=== PATIENT | male | born 1955 | race Caucasian/White ===

== ENCOUNTER 2024-08-23 13:45 | Outpatient (CLI) | payer MEDICARE, SELFPAY ==
--- NOTE | ~2024-08-23 | MR_ITS ---
EXAMINATION: MR pelvis wo/w con DATE: 08/23/2024 16:11 INDICATION: TECHNIQUE: Magnetic resonance imaging (MRI) of the pelvis was performed without and with 15 mL Multih ance intravenous contrast. Fullfield sequences of the pelvis included axial and coronal T2-weighted S S FSE, axial, sagittal and coronal 2D FIESTA, axial 2D FIESTA FS, axial SSFSE-IR BRENDA, axial dual-echo T1-weighted FSPGR, axial and coronal T1 weighted LAVA, 3D axial T2 Cube, axial diffusion-weighted SE with apparent diffusion coefficient (ADC) maps. Postcontrast sequences included a time course axial T1-weighted LAVA and sagittal and coronal T1-weighted LAVA. COMPARISON: None. FINDINGS: Postoperative change of prior prostatectomy. There are multiple foci of susceptibility artifact but n o abnormal enhancing soft tissue mass at the prostatectomy bed to suggest residual or locally recurre nt disease. Bladder is otherwise unremarkable. 7.5 cm exophytic cyst arising from the lower pole the right kidney. There is additional 1.5 cm cyst at the lower pole the left kidney. Visualized portions of bowels are unremarkable including a normal appendix. No free fluid in the pelvis. No pathologicall y enlarged pelvic or inguinal lymphadenopathy. Mild lumbar levocurvature with moderate to severe spon dylosis. Normal bone marrow signal with no pathologic marrow replacing process. IMPRESSION: 1. Status post prostatectomy reportedly for prostate cancer. No evident residual/locally recurrent or metastatic disease in the pelvis. Given the reported increasing PSA level would consider further alina luation with PSMA PET/CT. Reviewed, dictated and finalized at location A. IMPRESSION: 1. Status post prostatectomy reportedly for prostate cancer. No evident residua l/locally recurrent or metastatic disease in the pelvis. Given the reported inc reasing PSA level would consider further evaluation with PSMA PET/CT.
--- OUTSIDE RECORDS SUMMARY | 2024-08-23 13:51 | XMS_ITS | Encounter Summary ---
Author Organization [facility] Address [address] [place] [id number] Care Team Providers Care Arranger Assembler Name Role Phone Raj Gould DO Primary Care Provider [phone] Encounter Details Date Type Department Care Team (Late st Contact Info) Description 08/26/2019 Prep for Procedure [facility] [place], [place] [id number] Kayden Templeton MD [facility] [address] [place] [id number] Social History Tobacco Use Types Packs/Day Years Used Date Smoking Tobacco: Never Smokeless Tobacco: Never Alcohol Use Standard Drinks/Week Comments No 0 (1 standard drink = 0.6 oz pur e alcohol) AUDIT-C Answer Date Recorded Frequency of Alcohol Consumption Never 06/18/2018 Average Number of Drinks Not on file 019 Frequency of Binge Drinking Not on file 08/2018 Sex and Gender Information Value Date Recorded Sex Assigned at Not on file Legal Sex Male 6:21 PM CDT Gender Identity Not on file Sexual Orientation Not on file COVID-19 Exposure Response Date Recorded In the last month, have you been in contact with someone who was confirmed or suspected to have Coronavirus / COVID-19? No / Unsure 08/27/2019 5:44 AM CDT documented as of this encounter Plan of Treatment Not on file documented as of this encounter Results * RESPIRATORY PCR PANEL 2 ([facility]ONSCOPY PATIENTS ONLY) (08/26/2019 9:54 AM CDT) Pathologist [facility] ADENOVIRUS PCR (RESP) NOT DETECTED NOT DETECTED 08/26/2019 12:24 PM CDT [facility] CORONAVIRUS 229E PCR (RESP) NOT DETECTED NOT DETECTED 08/26/2019 12:24 PM CDT [facility] CORONAVIRUS HKU1 PCR (RESP) NOT DETECTED NOT DETECTED 08/26/2019 12:24 PM CDT [facility] CORONAVIRUS NL63 PCR (RESP) NOT DETECTED NOT DETECTED 08/26/2019 12:24 PM CDT [facility] CORONAVIRUS OC43 PCR (RESP) NOT DETECTED NOT DETECTED 08/26/2019 12:24 PM CDT [facility] METAPNEUMOVIRUS PCR (RESP) NOT DETECTED NOT DETECTED 08/26/2019 12:24 PM CDT [facility] RHINOVIRUS/ENTEROV IRUS PCR (RESP) NOT DETECTED NOT DETECTED 08/26/2019 12:24 PM CDT [facility] INFLUENZA A PCR (RESP) NOT DETECTED NOT DETECTED 08/26/2019 12:24 PM CDT [facility] INFLUENZA B PCR (RESP) NOT DETECTED NOT DETECTED 08/26/2019 12:24 PM CDT [facility] PARAINFLUENZA 1 PCR (RESP) NOT DETECTED NOT DETECTED 08/26/2019 12:24 PM CDT [facility] PARAINFLUENZA 2 PCR (RESP) NOT DETECTED NOT DETECTED 08/26/2019 12:24 PM CDT [facility] PARAINFLUENZA 3 PCR (RESP) NOT DETECTED NOT DETECTED 08/26/2019 12:24 PM CDT [facility] PARAINFLUENZA 4 PCR (RESP) NOT DETECTED NOT DETECTED 08/26/2019 12:24 PM CDT [facility] RSV PCR (RESP) NOT DETECTED NOT DETECTED 08/26/2019 12:24 PM CDT [facility] B PARAPERTUSIS PCR (RESP) NOT DETECTED NOT DETECTED 08/26/2019 12:24 PM CDT [facility] BORDETELLA PERTUSSIS PCR (RESP) NOT DETECTED NOT DETECTED 08/26/2019 12:24 PM CDT [facility] CHLAMYDOPHILA PNEUMONIAE PCR (RESP) NOT DETECTED NOT DETECTED 08/26/2019 12:24 PM CDT [facility] MYCOPLASMA PNEUMONIAE PCR (RESP) NOT DETECTED NOT DETECTED 08/26/2019 12:24 PM CDT [facility] CORONAVIRUS SARS COV 2 PCR (RESP) NOT DETECTED NOT DETECTED 08/26/2019 12:24 PM CDT [facility] Comment: THE SARS-CoV-2 TEST HAS BEEN AUTHORIZED BY THE FDA UNDER AN EUA FOR USE BY AUTHORIZED LABORATORIES. NASOPHARYNGEAL STRUCTURE / Unknown 08/26/2019 9:54 AM CDT us Kayden Templeton MD MICROBIOLOGY - [facility] Final Result [facility] [address] [place] [address], [place] [phone] documented in this encounter Visit Diagnoses Diagnosis Epigastric pain- Primary Abdominal pain, epigastric History of colonic polyps Personal history of colonic polyps documented in this encounter Additional Health Concerns Infection Onset Date Last Indicated Resolved Time COVID-19 Rule Out 08/26/2019 08/26/2019 08/26/2019 12:24 PM CDT documented as of this encounter Care Teams Arranger Assembler Relationship Specialty Start Date End Date Raj Gould DO PCP - General FAMILY PRACTICE 03/28/18 documented as of this encounter
--- OUTSIDE RECORDS SUMMARY | 2024-08-23 13:51 | XMS_ITS ---
Author Organization [facility] Address [address] [place], [place] [id number] Care Team Providers Care Tab Cutting Machine Operator Name Role Phone SHANNAN BESSIE Unavailable [phone] Raj Gould Unavailable Unavailable Allergies No Known Allergies REASON FOR VISIT *Wound check Medications Medication SIG (Take, Route, Frequency, Duration) Notes Start Date End Date Status Levothyroxine Sodium 25 MCG 1 tablet in the morning on an empty stomach Orally Once a day Active amLODIPine Benzoate 1 MG/ML 5 mL Orally Once a day Active Pantoprazole Sodium 20 MG 1 tablet 1/2 t o 1 hour before morning meal Orally Once a day Active Atorvastatin Calcium 10 MG 1 tablet Oral ly Once a day Active Losartan Potassium 25 MG 1 tablet Orally Once a day Active Vital Signs Height 71 in 07/23/2024 Weight 270 lbs 07/23/2024 BMI 37.65 kg/m2 07/23/2024 Height-cm 180.34 cm 07/23/2024 Weight-kg 122.47 kg 07/23/2024 Encounters Encounter Location Date Provider Diagnosis [facility] [address] [id number] 07/23/2024 BESSIE BURROUGHS 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.521 ; Other acute osteomyelitis of left foot M86.172 and Left foot pain M79.672 Assessments Encounter Date Diagnosis (ICD Code) Assessment Notes Treatment Notes Treatment Clinical Notes Section Notes 07/23/2024 Non-pressure chronic ulcer of other part of left foot limited to breakdown of skin (ICD-10 - L97.521) 07/23/2024 Other acute osteomyelitis of left foot (ICD-10 - M86.172) 07/23/2024 Left foot pain (ICD-10 - M79.672) 07/23/2024 Other MRI of left foot ordered The ulcer was debrided down to bleeding tissue. A dry sterile dressing was applied. The patient was given instruction on home dressing and told to use antibiotic ointment on the wound. The patient was instructed to minimize pressure on the wound and to call the office immediately if the wound should start to worsen. RTC 2 weeks for f/u with X-rays. Plan Of Treatment Treatment Notes Assessment Notes Other MRI of left foot ordered The ulcer was debrided down to bleeding tissue. A dry sterile dressing was applied. The patient was given instruction on home dressing and told to use antibiotic ointment on the wound. The patient was instructed to minimize pressure on the wound and to call the office immediately if the wound should start to worsen. RTC 2 weeks for f/u with X-rays. Next Appt Details Follow Up: 2 Weeks, Reason: with - wound check. Provider Name:BESSIE BARKER, 09/08/2024 07:40:00 AM, [address], [facility] [address], [place], [id number], Progress Notes * SIL AREVALO ADOB: [birth year] (68 yo M)Acc No.[id number]:07/23/2024 Patient: SIL BLAS Provider: Joel Burroughs DPM :1955 A ge:68 Y S ex:Male Date:07/23/2024 [id number] Subjective: * Chief Complaints: * 1 . *Wound check. * HPI: H PI: Follow Up Visit P atient presents for follow-up visit for left foot second toe sore. , Patient states their problem is getting worse. Patient states prolonged walking increases the pain and discomfort MA: ND. * Medical History: C ancer, High blood pressure. * Surgical History: p rostectomy , Hernia . * Family History: F ather: Cancer. B rother: Cancer. * Medications: T aking Losartan Potassium 25 MG Tablet 1 tablet Orally Once a day , Taking Atorvastatin Calcium 10 MG Tablet 1 tablet Orally Once a day , Taking amLODIPine Benzoate 1 MG/ML Suspension 5 mL Orally Once a day , Taking Pantoprazole Sodium 20 MG Tablet Delayed Release 1 tablet 1/2 to 1 hour before morning meal Orally Once a day , Taking Levothyroxine Sodium 25 MCG Tablet 1 tablet in the morning on an empty stomach Orally Once a day , Medication List reviewed and reconciled with the patient * Allergies: N .K.D.A. Objective: * Vitals: S hoe Size: 10w, Wt:270lbs, Wt-k.47 kg, Ht: 71 in, Ht-cm: 180.34 cm, BMI:37.65Index, Body Surface Area: 2.47. * Examination: C onstitutional: Constitutional T he patient is awake, alert, well developed, well groomed and well nourished. . D ermatologic: Nail pathology: N ails 1-5 bilateral are normal in appearance and thickness. No discoloration. . Ulcer: T here is an ulceration present on medial left 2nd toe. The ulcer has no erythema. 4x5 mm N o drainage. No exposed bone.. Hyperkeratotic Skin Lesion T here is no evidence of hyperkeratosis . M usculoskeletal: Muscle Strength M uscle strength is 5/5 in regards to dorsiflexion, plantarflexion, inversion, and eversion in bilateral lower extremities. . Foot Structure T he foot structure is noted to be normal bilaterally . Pain on palpation T here is no pain on palpation . 1st MPJ T here is lateral deviation of bilateral hallux. .? Gait T here is normal gait noted . N eurologic: Muscle power: 5 /5 bilaterally . Gross sensation G ross sensation is intact to light touch. . V ascular: Dorsalis pedis pulse: 2 /4 bilateral . Posterior tibial pulse: 2 /4 bilaterally . Capillary refill: l ess than 3 seconds bilaterally . Temperature gradient: w ithin normal limits . Edema: l eft 2nd toe. Assessment: * Assessment: 1. 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 O ther acute osteomyelitis of left foot - M86.172 ?3. L eft foot pain - M79.672 Plan: * Treatment: * Follow Up: 2 Weeks (Reason: with AH - wound check.) * Billing Information: * Visit Code: 55658 Office Visit, Est Pt., Level 3. * Procedure Codes: * Electronic signature of BESSIE BURROUGHS DPM on 08/23/2024 at 01:51 PM CDT Sign off status: Pending * Provider: Joel Burroughs DPM Date: 07/23/2024 Generated for Cass montes/Tree/Tiara on: 0 08/23/2024 01:51 PM CDT History and Physical Notes * HPI (History of Present Illness) Category Sub-Category Detail Notes Category Not es HPI Follow Up Visit Patient presents for follow-up visit for left foot second toe sore. , Patient states their problem is getting worse. Patient states prolonged walking increases the pain and discomfort MA: ND Examination Category Sub-Category Detail Notes Category Not es Constitutional Constitutional The patient is a wake, alert, well developed, well groomed and well nourished. Dermatologic Nail pathology: Nails 1-5 bilate ral are normal in appearance and thickness. No discoloration. Ulcer: There is an ulcerati on present on medial left 2nd toe. The ulcer has no erythema. 4x5 mm No drainage. No exposed bone. Hyperkeratotic Skin Lesion There is no e vidence of hyperkeratosis Musculoskeletal Muscle Strength Muscle strength is 5/5 in regards to dorsiflexion, plantarflexion, inversion, and eversion in bilateral lower extremities. Pain on palpation There is no pain on palpation 1st MPJ There is lateral dev iation of bilateral hallux. Foot Structure The foot structure i s noted to be normal bilaterally Gait There is normal gait noted Neurologic Muscle power: 5/5 bilaterally Gross sensation Gross sensation is i ntact to light touch. Vascular Dorsalis pedis pulse: 2/4 bilateral Posterior tibial pulse: 2/4 bilaterally Capillary refill: less than 3 seconds bilaterally Temperature gradient: within normal limi ts Edema: left 2nd toe
--- OUTSIDE RECORDS SUMMARY | 2024-08-23 13:51 | XMS_ITS | Data Portability ---
Author Organization [facility] Madeline H C Address [address] [place] [address] Assessment No assessment recorded. Plan of Treatment Reminders Order Date Submit Date Provider Last Modified By Organization Details Last Modified Time Details Appointments ANY 15 2024 07:00A Griselda Cotter, DO Not available Not available Not available Lab HbA1c (hemoglob in A1c), blood 2024 025 [employer] [facility], [address], [address], [place], [address], 07/10/2024 05:48:09 CBC w/ auto diff 2024 025 [employer] [facility], [address], [address], [place], [address], 07/10/2024 05:48:08 BMP, serum or plasma 2024 025 [employer] [facility], [address], [address], [place], [address], 07/10/2024 05:48:06 hepatic function panel, serum 2024 025 [employer] [facility], [address], [address], [place], [address], 07/10/2024 05:48:07 iron, serum 2024 025 [employer], [address], [address], [place], [address], 07/10/2024 05:48:05 CBC w/ auto diff 2023 024 [facility], [address], [address], [place], [address], 01/30/2024 04:33:08 iron + TIBC + ferritin, serum 2023 024 [facility], [address], [address], [place], [address], 01/30/2024 04:33:06 BMP, serum or plasma 2023 024 [facility] [facility], [address], [address], [place], [address], 10/04/2023 09:06:23 CBC 2023 024 [employer] [facility], [address], [address], [place], [address], 10/08/2023 13:27:06 lipid panel, serum 2023 024 [facility], [address], [address], [place], [address], 10/04/2023 09:06:22 hepatic function panel, serum 2023 024 [facility], [address], [address], [place], [address], 10/04/2023 09:06:24 vitamin D, 25-hydrox y, total, serum 2023 024 [facility], [address], [address], [place], [address], 10/04/2023 09:06:27 TSH, serum or plasma 2023 024 [employer] [facility], [address], [address], [place], [address], 10/04/2023 09:06:26 Referral None recorded. Procedures None recorded. Surgeries None recorded. Imaging MRI, lumbar spine, w/o contrast 2024 025 [facility]), [address], [address], [place], [address], 03/19/2024 12:45:35 Medication Orders Zepbound 2.5 mg/0.5 mL subcutane ous pen injector 2024 [facility], [address] [place] [address], [id number], 06/27/2024 18:33:03 triamcino lone acetonide 40 mg/mL suspensio n for injection 2024 025 [facility], [address] [place] [address], [id number], 06/24/2024 08:20:08 Patient TargetsNo targets recorded. Patient Instructions Encounter Date Encounter Id Patient Instructions Last Modified By Organization Details Last Modified Time 06/22/2023 [id number] A healthy lifestyle: care instructions [email or web address] Not available 06/22/2023 09:39:19 03/10/2024 [id number] A healthy lifestyle: care instructions [email or web address] Not available 03/10/2024 09:04:10 06/24/2024 [id number] A healthy lifestyle: care instructions [email or web address] Not available 06/24/2024 15:13:54 Reason for Referral None Reported. Results Created Date Observation Date Name Description Value Unit Range Abnormal Flag Note LastModifiedBy Organization Detail LastModifiedTime 09/18/1901/01/2024 HOUSE ACCOU NT TRACK ING tracking house account We were unabl e to ident kaci an accou nt numbe r for the order submi tted. If you do not have a [facility] accou nt numbe r or if your accou nt infor matio n needs to be updat ed pleas e call [phone] for juni tance . To preve nt delay s in testi ng and proce ssing of your order s pleas e provi de the follo wing infor martir n for this order and with every addit ional order submi tted: [facility] accou nt numbe r and accou nt name Clien t addre ss Clien t phone and fax numbe r NPI numbe r of order ing physi ciro along with the physi ciro name. Not Available [address], [address], 01/01/2024 13:53:11 09/18/1901/01/2024 FECAL GLOBI N BY IMMUN OCHEM ISTRY fecal globin by immunochemis try FECAL GLOBI N BY IMMUN OCHEM ISTRY Micro Numbe r: [id number] Test Statu s: Final Speci men Sourc e: Insur e (tm) fobt test card Speci men Quali ty: Inade quate Fecal Globi n: Test not perfo rmed. The speci men excee ds stabi lity for the test reque sted. Not Available [address], [address], 01/01/2024 13:53:13 10/02/19 24 10/04/2023 LIPID PANEL (REFL ) cholesterol, total 103 mg/dL <200 normal Not Available [employer] [address], [address], 10/04/2023 09:06:22 10/02/19 24 10/04/2023 LIPID PANEL (REFL ) HDL cholesterol 42 mg/dL > or = 40 normal Not Available [address], [address], 10/04/2023 09:06:22 10/02/19 24 10/04/2023 LIPID PANEL (REFL ) triglyceride s 88 mg/dL <150 normal Not Available [address] [place], [address], 10/04/2023 09:06:22 10/02/19 24 10/04/2023 LIPID PANEL (REFL ) LDL-choleste rol 44 mg/dL _(kim c) normal Refer ence range : <100 Marycruz able range <100 mg/dL for prima ry preve ntion ; <70 mg/dL for patie nts with CHD or diabe tic patie nts with > or = 2 CHD risk facto rs. LDL-C is now calcu lated using the Koki n-Hop kins calcu latmallory n, which is a valid ated novel metho d provi ding daljit r accur acy than the Fried karthik equat ion in the estim ation of LDL-C . Koki otero SS et al. SABINE. 2013; 310(1 9): 2061- 2068 (http ://ed ucati on.A-STAR. NASOFORM/f aq/FA Q164) Not Available [employer] [address], [address], 10/04/2023 09:06:22 10/02/19 24 10/04/2023 LIPID PANEL (REFL ) chol/HDLC ratio 2.5 (calc ) <5.0 normal Not Available [address], [address], 10/04/2023 09:06:22 10/02/19 24 10/04/2023 LIPID PANEL (REFL ) non HDL cholesterol 61 mg/dL _(kim c) <130 normal For patie nts with diabe catalina plus 1 major ASCVD risk facto r, treat ing to a non-H DL-C goal of <100 mg/dL (LDL- C of <70 mg/dL ) is laure freemano n. Not Available [address] [address] [place], [address], 10/04/2023 09:06:22 10/02/19 24 10/04/2023 BASIC METAB OLIC PANEL glucose 107 mg/dL 65-99 high Fasti ng refer ence inter cristobal For someo ne witho ut known diabe catalina, a gluco se value betwe en 100 and 125 mg/dL is consi stent with predi abete s and shoul d be confi rmed with a follo w-up test. Not Available [address] [address] [place], [address], 10/04/2023 09:06:23 10/02/19 24 10/04/2023 BASIC METAB OLIC PANEL urea nitrogen (BUN) 16 mg/dL 7-25 normal Not Available [facility] [address] [address] [place], [address], 10/04/2023 09:06:23 10/02/19 24 10/04/2023 BASIC METAB OLIC PANEL creatinine 1.02 mg/dL 0.70-1 .35 normal Not Available [employer] [address] [address] [place], [address], 10/04/2023 09:06:23 10/02/19 24 10/04/2023 BASIC METAB OLIC PANEL eGFR 80 mL/mi n/1.7 3m2 > or = 60 normal Not Available [address] [address] [place], [address], 10/04/2023 09:06:23 10/02/19 24 10/04/2023 BASIC METAB OLIC PANEL BUN/creatini ne ratio SEE NOTE: (calc ) 6-22 Not Repor mg: BUN and Creat inine are withi n refer ence range . Not Available [facility] [address] [address] [place], [address], 10/04/2023 09:06:23 10/02/19 24 10/04/2023 BASIC METAB OLIC PANEL sodium 140 mmol/ L 135-14 6 normal Not Available [facility] [address] [address] [place], [address], 10/04/2023 09:06:23 10/02/19 24 10/04/2023 BASIC METAB OLIC PANEL potassium 4.5 mmol/ L 3.5-5. 3 normal Not Available [address], [address], 10/04/2023 09:06:23 10/02/19 24 10/04/2023 BASIC METAB OLIC PANEL chloride 108 mmol/ L 98-110 normal Not Available [address], [address], 10/04/2023 09:06:23 10/02/19 24 10/04/2023 BASIC METAB OLIC PANEL carbon dioxide 26 mmol/ L 20-32 normal Not Available [address], [address], 10/04/2023 09:06:23 10/02/19 24 10/04/2023 BASIC METAB OLIC PANEL calcium 8.5 mg/dL 8.6-10 .3 low Not Available [address], [address], 10/04/2023 09:06:23 10/02/19 24 10/04/2023 HEPAT IC FUNCT ION PANEL protein, total 6.0 g/dL 6.1-8. 1 low Not Available [address], [address], 10/04/2023 09:06:24 10/02/19 24 10/04/2023 HEPAT IC FUNCT ION PANEL albumin 3.9 g/dL 3.6-5. 1 normal Not Available [address], [address], 10/04/2023 09:06:24 10/02/19 24 10/04/2023 HEPAT IC FUNCT ION PANEL globulin 2.1 g/dL_ (calc ) 1.9-3. 7 normal Not Available [address], [address], 10/04/2023 09:06:24 10/02/19 24 10/04/2023 HEPAT IC FUNCT ION PANEL albumin/glob ulin ratio 1.9 (calc ) 1.0-2. 5 normal Not Available [address], [address], 10/04/2023 09:06:24 10/02/19 24 10/04/2023 HEPAT IC FUNCT ION PANEL bilirubin, total 0.5 mg/dL 0.2-1. 2 normal Not Available [address], [address], 10/04/2023 09:06:24 10/02/19 24 10/04/2023 HEPAT IC FUNCT ION PANEL bilirubin, direct 0.1 mg/dL < or = 0.2 normal Not Available [address], [address], 10/04/2023 09:06:24 10/02/19 24 10/04/2023 HEPAT IC FUNCT ION PANEL bilirubin, indirect 0.4 mg/dL _(kim c) 0.2-1. 2 normal Not Available [address], [address], 10/04/2023 09:06:24 10/02/19 24 10/04/2023 HEPAT IC FUNCT ION PANEL alkaline phosphatase 107 U/L 35-144 normal Not Available [address] [address] [place], [address], 10/04/2023 09:06:24 10/02/19 24 10/04/2023 HEPAT IC FUNCT ION PANEL AST 14 U/L 10-35 normal Not Available [address], [address], 10/04/2023 09:06:24 10/02/19 24 10/04/2023 HEPAT IC FUNCT ION PANEL ALT 12 U/L 9-46 normal Not Available [address], [place], [address], 10/04/2023 09:06:24 10/02/19 24 10/04/2023 TSH W/REF RIOS TO FT4 TSH w/reflex to FT4 0.87 mIU/L 0.40-4 .50 normal Not Available [facility] [address] [address] [place], [address], 10/04/2023 09:06:26 10/02/19 24 10/04/2023 VITAM IN D,25- OH,TO JOANNA,I A vitamin D,25-oh,tota l,ia 56 NG/mL 30-100 normal Vitam in D Statu s 25-OH Vitam in D: Defic iency : <20 ng/mL Insuf ficie ncy: 20 - 29 ng/mL Optim al: > or = 30 ng/mL For 25-OH Vitam in D testi ng on patie nts on D2-gardner pplem entat ion and patie nts for whom quant itati on of D2 and D3 fract ions is requi red, the [facility] Assur eD(TM ) 25-OH VIT D, (D2,D 3), LC/MS /MS is recom britt d: order code 01750 (quentin ents >2yrs ). See Note 1 Note 1 For addit ional infor jelani tucker refer to http: //[facility] reuben Sheikhia gnost ics.c om/fa q/FAQ 199 (This link is being provi ded for infor martir garay/ collin almeida purpo ses only. ) Not Available [facility] [address] [address] [place], [address], 10/04/2023 09:06:26 10/17/1910/18/2023 IRON, TIBC AND INGRID TIN PANEL iron, total 36 mcg/d L 50-180 low Not Available [facility] [address] [address] [place], [address], 10/18/2023 07:55:58 10/17/19 24 10/18/2023 IRON, TIBC AND INGRID TIN PANEL iron binding capacity 385 mcg/d L_(ca lc) 250-42 5 normal Not Available [address], [address], 10/18/2023 07:55:58 10/17/19 24 10/18/2023 IRON, TIBC AND INGRID TIN PANEL % saturation 9 %_(ca lc) 20-48 low Not Available [address], [address], 10/18/2023 07:55:58 10/17/19 24 10/18/2023 IRON, TIBC AND INGRID TIN PANEL ferritin 5 NG/mL 24-380 low Not Available [address], [address], 10/18/2023 07:55:58 10/17/19 24 10/18/2023 RETIC ULOCY TE COUNT reticulocyte count, automated 1.0 % normal Not Available [address], [address], 10/18/2023 07:55:59 10/17/19 24 10/18/2023 RETIC ULOCY TE COUNT reticulocyte , absolute 35074 cells /uL [address]- [address] normal Not Available [address], [address], 10/18/2023 07:55:59 10/17/19 24 10/18/2023 VITAM IN B12 vitamin B12 838 pg/mL 200-11 00 normal Not Available [address], [address], 10/18/2023 07:55:59 01/29/20 24 01/30/2024 IRON, TIBC AND INGRID TIN PANEL iron, total 199 mcg/d L 50-180 high Not Available [address], [address], 01/30/2024 04:33:06 01/29/20 24 01/30/2024 IRON, TIBC AND INGRID TIN PANEL iron binding capacity 390 mcg/d L_(ca lc) 250-42 5 normal Not Available [address], [address], 01/30/2024 04:33:06 01/29/20 24 01/30/2024 IRON, TIBC AND INGRID TIN PANEL % saturation 51 %_(ca lc) 20-48 high Not Available [address], [address], 01/30/2024 04:33:06 01/29/20 24 01/30/2024 IRON, TIBC AND INGRID TIN PANEL ferritin 9 NG/mL 24-380 low Not Available [address], [address], 01/30/2024 04:33:06 01/29/20 24 01/30/2024 CBC (INCL UDES DIFF/ PLT) white blood cell count 4.9 thous and/u L 3.8-10 .8 normal Not Available [address], [address], 01/30/2024 04:33:08 01/29/20 24 01/30/2024 CBC (INCL UDES DIFF/ PLT) red blood cell count 5.18 za on/uL 4.20-5 .80 normal Not Available [address], [address], 01/30/2024 04:33:08 01/29/20 24 01/30/2024 CBC (INCL UDES DIFF/ PLT) hemoglobin 13.1 g/dL 13.2-1 7.1 low Not Available [address], [address], 01/30/2024 04:33:08 01/29/20 24 01/30/2024 CBC (INCL UDES DIFF/ PLT) hematocrit 42.4 % 38.5-5 0.0 normal Not Available [address], [address], 01/30/2024 04:33:08 01/29/20 24 01/30/2024 CBC (INCL UDES DIFF/ PLT) MCV 81.9 fL 80.0-1 00.0 normal Not Available [address], [address], 01/30/2024 04:33:08 01/29/20 24 01/30/2024 CBC (INCL UDES DIFF/ PLT) MCH 25.3 pg 27.0-3 3.0 low Not Available [employer] [address], [address], 01/30/2024 04:33:08 01/29/20 24 01/30/2024 CBC (INCL UDES DIFF/ PLT) MCHC 30.9 g/dL 32.0-3 6.0 low For adult s, a sligh t decre ase in the calcu lated MCHC value (in the range of 30 to 32 g/dL) is most likel y not clini nathaniel aguilar t; maria luisa er, it shoul d be inter prete d with cauti on in [facility] n with other red cell gabriella eters and the patie nt's clini kim condi tion. Not Available [employer] [address], [address], 01/30/2024 04:33:08 01/29/20 24 01/30/2024 CBC (INCL UDES DIFF/ PLT) RDW 16.4 % 11.0-1 5.0 high Not Available [employer] [address], [address], 01/30/2024 04:33:08 01/29/20 24 01/30/2024 CBC (INCL UDES DIFF/ PLT) platelet count 230 thous and/u L 140-40 0 normal Not Available [facility] [id number] [place], [address], 01/30/2024 04:33:08 01/29/20 24 01/30/2024 CBC (INCL UDES DIFF/ PLT) MPV 10.1 fL 7.5-12 .5 normal Not Available [address], [address], 01/30/2024 04:33:08 01/29/20 24 01/30/2024 CBC (INCL UDES DIFF/ PLT) absolute neutrophils 3126 cells /uL 1500-7 800 normal Not Available [address], [address], 01/30/2024 04:33:08 01/29/20 24 01/30/2024 CBC (INCL UDES DIFF/ PLT) absolute lymphocytes 1068 cells /uL 850-39 00 normal Not Available [address], [address], 01/30/2024 04:33:08 01/29/20 24 01/30/2024 CBC (INCL UDES DIFF/ PLT) absolute monocytes 495 cells /uL 200-95 0 normal Not Available [address], [address], 01/30/2024 04:33:08 01/29/20 24 01/30/2024 CBC (INCL UDES DIFF/ PLT) absolute eosinophils 162 cells /uL 15-500 normal Not Available [address], [address], 01/30/2024 04:33:08 01/29/20 24 01/30/2024 CBC (INCL UDES DIFF/ PLT) absolute basophils 49 cells /uL 0-200 normal Not Available [address], [address], 01/30/2024 04:33:08 01/29/20 24 01/30/2024 CBC (INCL UDES DIFF/ PLT) neutrophils 63.8 % normal Not Available [address], [address], 01/30/2024 04:33:08 01/29/20 24 01/30/2024 CBC (INCL UDES DIFF/ PLT) lymphocytes 21.8 % normal Not Available [address], [address], 01/30/2024 04:33:08 01/29/20 24 01/30/2024 CBC (INCL UDES DIFF/ PLT) monocytes 10.1 % normal Not Available [address], [address], 01/30/2024 04:33:08 01/29/20 24 01/30/2024 CBC (INCL UDES DIFF/ PLT) eosinophils 3.3 % normal Not Available [address], [address], 01/30/2024 04:33:08 01/29/20 24 01/30/2024 CBC (INCL UDES DIFF/ PLT) basophils 1.0 % normal Not Available [address], [address], 01/30/2024 04:33:08 07/10/19 25 07/10/2024 IRON, TOTAL iron, total 100 mcg/d L 50-180 normal Not Available [address], [address], 07/10/2024 05:48:05 07/10/19 25 07/10/2024 BASIC METAB OLIC PANEL glucose 104 mg/dL 65-99 high Fasti ng refer ence inter cristobal For someo ne witho ut known diabe catalina, a gluco se value betwe en 100 and 125 mg/dL is consi stent with predi abete s and shoul d be confi rmed with a follo w-up test. Not Available [address] [place], [address], 07/10/2024 05:48:06 07/10/1907/10/2024 BASIC METAB OLIC PANEL urea nitrogen (BUN) 15 mg/dL 7-25 normal Not Available [address], [address], 07/10/2024 05:48:06 07/10/1907/10/2024 BASIC METAB OLIC PANEL creatinine 1.05 mg/dL 0.70-1 .28 normal Not Available [address], [address], 07/10/2024 05:48:06 07/10/1907/10/2024 BASIC METAB OLIC PANEL eGFR 76 mL/mi n/1.7 3m2 > or = 60 normal Not Available [address], [address], 07/10/2024 05:48:06 07/10/1907/10/2024 BASIC METAB OLIC PANEL BUN/creatini ne ratio SEE NOTE: (calc ) 6-22 Not Repor mg: BUN and Creat inine are withi n refer ence range . Not Available [address], [address], 07/10/2024 05:48:06 07/10/1907/10/2024 BASIC METAB OLIC PANEL sodium 141 mmol/ L 135-14 6 normal Not Available [address], [address], 07/10/2024 05:48:06 07/10/1907/10/2024 BASIC METAB OLIC PANEL potassium 4.3 mmol/ L 3.5-5. 3 normal Not Available [address], [address], 07/10/2024 05:48:06 07/10/1907/10/2024 BASIC METAB OLIC PANEL chloride 106 mmol/ L 98-110 normal Not Available [address], [address], 07/10/2024 05:48:06 07/10/1907/10/2024 BASIC METAB OLIC PANEL carbon dioxide 27 mmol/ L 20-32 normal Not Available [address], [address], 07/10/2024 05:48:06 07/10/1907/10/2024 BASIC METAB OLIC PANEL calcium 8.8 mg/dL 8.6-10 .3 normal Not Available [address], [address], 07/10/2024 05:48:06 07/10/1907/10/2024 HEPAT IC FUNCT ION PANEL protein, total 6.3 g/dL 6.1-8. 1 normal Not Available [address], [address], 07/10/2024 05:48:07 07/10/1907/10/2024 HEPAT IC FUNCT ION PANEL albumin 4.3 g/dL 3.6-5. 1 normal Not Available [address], [address], 07/10/2024 05:48:07 07/10/1907/10/2024 HEPAT IC FUNCT ION PANEL globulin 2.0 g/dL_ (calc ) 1.9-3. 7 normal Not Available [address], [address], 07/10/2024 05:48:07 07/10/1907/10/2024 HEPAT IC FUNCT ION PANEL albumin/glob ulin ratio 2.2 (calc ) 1.0-2. 5 normal Not Available [address], [address], 07/10/2024 05:48:07 07/10/1907/10/2024 HEPAT IC FUNCT ION PANEL bilirubin, total 1.0 mg/dL 0.2-1. 2 normal Not Available [address], [address], 07/10/2024 05:48:07 07/10/1907/10/2024 HEPAT IC FUNCT ION PANEL bilirubin, direct 0.3 mg/dL < or = 0.2 high Not Available [address], [address], 07/10/2024 05:48:07 07/10/1907/10/2024 HEPAT IC FUNCT ION PANEL bilirubin, indirect 0.7 mg/dL _(kim c) 0.2-1. 2 normal Not Available [address], [address], 07/10/2024 05:48:07 07/10/1907/10/2024 HEPAT IC FUNCT ION PANEL alkaline phosphatase 109 U/L 35-144 normal Not Available [facility] [employer] [address], [address], 07/10/2024 05:48:07 07/10/1907/10/2024 HEPAT IC FUNCT ION PANEL AST 19 U/L 10-35 normal Not Available [address], [address], 07/10/2024 05:48:07 07/10/1907/10/2024 HEPAT IC FUNCT ION PANEL ALT 23 U/L 9-46 normal Not Available [address], [address], 07/10/2024 05:48:07 07/10/1907/10/2024 CBC (INCL UDES DIFF/ PLT) white blood cell count 4.5 thous and/u L 3.8-10 .8 normal Not Available [address], [address], 07/10/2024 05:48:08 07/10/1907/10/2024 CBC (INCL UDES DIFF/ PLT) red blood cell count 5.08 za on/uL 4.20-5 .80 normal Not Available [address], [address], 07/10/2024 05:48:08 07/10/1907/10/2024 CBC (INCL UDES DIFF/ PLT) hemoglobin 14.4 g/dL 13.2-1 7.1 normal Not Available [address], [address], 07/10/2024 05:48:08 07/10/1907/10/2024 CBC (INCL UDES DIFF/ PLT) hematocrit 45.0 % 38.5-5 0.0 normal Not Available [address], [address], 07/10/2024 05:48:08 07/10/1907/10/2024 CBC (INCL UDES DIFF/ PLT) MCV 88.6 fL 80.0-1 00.0 normal Not Available [address], [address], 07/10/2024 05:48:08 07/10/1907/10/2024 CBC (INCL UDES DIFF/ PLT) MCH 28.3 pg 27.0-3 3.0 normal Not Available [address], [address], 07/10/2024 05:48:08 07/10/1907/10/2024 CBC (INCL UDES DIFF/ PLT) MCHC 32.0 g/dL 32.0-3 6.0 normal For adult s, a sligh t decre ase in the calcu lated MCHC value (in the range of 30 to 32 g/dL) is most likel y not clini nathaniel signi jeff t; maria luisa er, it shoul d be inter prete d with cauti on in corre latio n with other red cell gabriella eters and the patie nt's clini kim condi tion. Not Available [facility] [address], [address], 07/10/2024 05:48:08 07/10/1907/10/2024 CBC (INCL UDES DIFF/ PLT) RDW 14.9 % 11.0-1 5.0 normal Not Available [facility] [address], [address], 07/10/2024 05:48:08 07/10/1907/10/2024 CBC (INCL UDES DIFF/ PLT) platelet count 204 thous and/u L 140-40 0 normal Not Available [facility] [address], [address], 07/10/2024 05:48:08 07/10/1907/10/2024 CBC (INCL UDES DIFF/ PLT) MPV 10.4 fL 7.5-12 .5 normal Not Available [address], [address], 07/10/2024 05:48:08 07/10/1907/10/2024 CBC (INCL UDES DIFF/ PLT) absolute neutrophils 3056 cells /uL 1500-7 800 normal Not Available [facility] [address], [address], 07/10/2024 05:48:08 07/10/1907/10/2024 CBC (INCL UDES DIFF/ PLT) absolute lymphocytes 846 cells /uL 850-39 00 low Not Available [address], [address], 07/10/2024 05:48:08 07/10/1907/10/2024 CBC (INCL UDES DIFF/ PLT) absolute monocytes 401 cells /uL 200-95 0 normal Not Available [address], [address], 07/10/2024 05:48:08 07/10/1907/10/2024 CBC (INCL UDES DIFF/ PLT) absolute eosinophils 140 cells /uL 15-500 normal Not Available [address], [address], 07/10/2024 05:48:08 07/10/1907/10/2024 CBC (INCL UDES DIFF/ PLT) absolute basophils 59 cells /uL 0-200 normal Not Available [address], [address], 07/10/2024 05:48:08 07/10/1907/10/2024 CBC (INCL UDES DIFF/ PLT) neutrophils 67.9 % normal Not Available [address], [address], 07/10/2024 05:48:08 07/10/1907/10/2024 CBC (INCL UDES DIFF/ PLT) lymphocytes 18.8 % normal Not Available [address], [address], 07/10/2024 05:48:08 07/10/1907/10/2024 CBC (INCL UDES DIFF/ PLT) monocytes 8.9 % normal Not Available [address], [address], 07/10/2024 05:48:08 07/10/1907/10/2024 CBC (INCL UDES DIFF/ PLT) eosinophils 3.1 % normal Not Available [address], [address], 07/10/2024 05:48:08 07/10/1907/10/2024 CBC (INCL UDES DIFF/ PLT) basophils 1.3 % normal Not Available [facility] [address] [place], [address], 07/10/2024 05:48:08 07/10/1907/10/2024 HEMOG LOBIN A1C hemoglobin A1C 6.2 %_of_ total _HGB <5.7 high For someo ne witho ut known diabe catalina, a hemog lobin A1c value betwe en 5.7% and 6.4% is consi stent with predi abete s and shoul d be confi rmed with a follo w-up test. For someo ne with known diabe catalina, a value <7% indic ates that their diabe catalina is well contr olled . A1c targe ts shoul d be indiv idual ized based on durat ion of diabe catalina, age, comor bid condi tions , and other consi derat ions. This assay resul t is consi stent with an incre ased risk of diabe catalina. Curre ntly, no conse nsus exist s regar ding use of hemog lobin A1c for diagn osis of diabe catalina for child froylan. Not Available [facility] [address], [place], [address], 07/10/2024 05:48:09 03/19/1903/18/2024 MRI, lumba r spine , w/o contr ast No observ ation record ed. [facility] [address], [place], [address], 03/21/2024 11:01:37 Result Notes None recorded. Problems Name Problem SNOMED Code Status Onset Date Resolution Date Notes Provider Name and Address Organization Details Recorded Time Dyslipidemia 847601649 Active 2023 Raj Cotter DO Attn: Harmony smiley,[address] [facility], [place], [address], [facility] 08:12:53 Hypothyroidism 99207386 Active 2023 Raj Cotter DO Attn: Harmony smiley,[address] [facility], [place], [address], [facility] 4 08:12:55 Essential hypertension [id number] Active 2023 Raj Cotter DO Attn: Harmony smiley,[address] [facility], [place], [address], [facility] 4 08:12:56 Gastroesophage al reflux disease without esophagitis 271891792 Active 2023 Raj Cotter DO Attn: Harmony smiley,[address] [facility], [place], [place], [address] [place] [address] 2, [facility] - [facility] 4 08:12:57 Obesity 856108898 Active 2023 Raj Cotter DO Attn: Harmony smiley,[address] [facility], [place], [place], [address] [place] [address] 2, [facility] - [facility] 4 08:12:59 Anemia 655933080 Active 2023 Za Alexander MA null, [facility] 4 15:52:09 History of malignant neoplasm of prostate 651085363 Active 2024 Raj Cotter DO Attn: Harmony smiley,[address] [facility], [place], [place], [address] [place] [address] 2, [facility] - [facility] 5 08:57:35 Problem Notes None recorded. Procedures Surgical History Date Name Laterality Status Provider Name and Address Organization Details Recorded Time 02/12/19 22 hernia repair completed Dinorah Doran RN [facility] 06/22/2023 09:39:16 02/12/19 20 Prostatectomy (turp) completed Dinorah Doran RN [facility] 06/22/2023 09:39:36 02/12/19 18 colonoscopy completed Madison Dinero MA [facility] 06/22/2023 10:19:29 Imaging Results None recorded. Procedure Notes None recorded. Medical Equipment None Reported. Allergies No known drug allergies Medications Name Sig Start Date Stop Date Status Note LastModified by Organization Details LastModified Time losartan 50 mg tablet TAKE ONE TABLET BY MOUTH EVERY DAY 2024 active Not Available Not Available Not Avai lable doxycycline hyclate 100 mg capsule TAKE ONE CAPSULE BY MOUTH TWICE DAILY FOR SEVEN DAYS 06/24 completed Not Available Not Available Not Available atorvastati n 10 mg tablet TAKE ONE TABLET BY MOUTH EVERY DAY 2024 active Not Available Not Available Not Avai lable prednisone 20 mg tablet 06/24 completed Not Available Not Available Not Available fluorouraci l 5 % topical cream apply topically at bedtime for 28 days to left cheek 03/10 completed Not Available Not Available Not Available aspirin 81 mg tablet,delilah yed release Take 1 tablet every day by oral route. active Not Available Not Available No t Available levothyroxi ne 100 mcg tablet TAKE ONE TABLET BY MOUTH EVERY DAY active Not Available Not Available No t Available triamcinolo ne acetonide 40 mg/mL suspension for injection Take 60 mg by injection route. 06/24 completed Not Available Not Available Not Available pantoprazol e 40 mg tablet,delilah yed release TAKE ONE TABLET BY MOUTH EVERY DAY active Not Available Not Available No t Available metoprolol succinate ER 25 mg tablet,exte nded release 24 hr TAKE ONE TABLET BY MOUTH EVERY DAY 2024 active Not Available Not Available Not Avai lable iFerex 150 150 mg iron capsule TAKE ONE CAPSULE BY MOUTH EVERY DAY active Not Available Not Available No t Available methylpredn isolone 4 mg tablets in a dose pack FOLLOW PACKAGE DIRECTION S 03/10 completed Not Available Not Available Not Available amoxicillin 875 mg-potassiu m clavulanate 125 mg tablet TAKE ONE TABLET BY MOUTH EVERY TWELVE HOURS FOR FOURTEEN DAYS 06/24 completed Not Available Not Available Not Available cyclobenzap rine 5 mg tablet 06/24 completed Not Available Not Available Not Available metoprolol tartrate 25 mg tablet Take 1 tablet twice a day by oral route for 90 days. 06/21 completed Not Available Not Available Not Available Vitamin C 1 daily active Not Available Not Av ailable Not Available Vitamin B-12 1 active Not Available Not Available Not Available PreserVisio n Lutein 1 BID active Not Available Not Available Not Available Vitamin D3 50 mcg (2,000 unit) capsule Take 1 capsule every day by oral route. active Not Available Not Available No t Available Niferex (Sumalate-Q [facility]) 150 mg iron-60 mg-1 mg tablet Take 1 tablet every day by oral route. 03/10 completed Not Available Not Available Not Available Zepbound 2.5 mg/0.5 mL subcutaneou s pen injector Inject by subcutane ous route for 28 days. 2024 active Not Available Not Available Not Avai lable Vitals Date Recorded Systolic And Diastolic Provider Name and Address Organization Details Last Updated DateTime 03/10/2024 132/74 mm[Hg] Rc Adhikari Attn: Accounting,[address] [place], [address], [facility] 03/10/2024 08:21:08 Date Recorded Body height Body mass index (BMI) Body weight Provider Name and Address Organization Details Last Updated DateTime 03/10/2024 177.8 cm 39.3 kg/m2 706661.36 g Delmy Alan MA [facility] 03/10/2024 08:01:39 Date Recorded Systolic And Diastolic Provider Name and Address Organization Details Last Updated DateTime 06/22/2023 132/82 mm[Hg] Rc Adhikari Attn: Accounting,[address] [place], [address], [facility] 06/22/2023 10:09:13 Date Recorded Body height Body mass index (BMI) Body weight Provider Name and Address Organization Details Last Updated DateTime 06/22/2023 180.34 cm 38.5 kg/m2 862071.19 g Dinorah Doran RN [facility] 06/22/2023 09:33:29 Date Recorded Systolic And Diastolic Provider Name and Address Organization Details Last Updated DateTime 06/24/2024 122/82 mm[Hg] Rc Adhikari Attn: Accounting,[address] [place], [address], [facility] 06/24/2024 09:04:22 Date Recorded Body height Body mass index (BMI) Body weight Provider Name and Address Organization Details Last Updated DateTime 06/24/2024 177.8 cm 40.6 kg/m2 849388.99 g Delmy Alan MA [facility] 06/24/2024 08:19:50 Date Recorded Systolic And Diastolic Provider Name and Address Organization Details Last Updated DateTime 12/26/2023 134/78 mm[Hg] Rc Adhikari Attn: Accounting,[address] [facility], [place], [address], [facility] 12/26/2023 09:58:20 Date Recorded Body height Body mass index (BMI) Body weight Oxygen saturation Oxygen saturation in Arterial blood by Pulse oximetry Heart rate Provider Name and Address Organization Details Last Updated DateTime 180.34 cm 38.6 kg/m2 582844. 94 g 96 % 96 % 69 /min Za Alexander MA [facility] 09:07:46 Social History Question Answer Notes LastModified by [facility] Details LastModified Time Tobacco Smoking Status Never Smoker Dinorah Doran RN null, [facility] 06/22/2023 09:38:08 What Is Your Level Of Caffeine Consumption? None Information not available 06/22/2023 What Was The Date Of Your Most Recent Tobacco Screening? 06/24/2024 Information not available 06/24/2024 Has Tobacco Cessation Counseling Been Provided? No Information not available 03/10/2024 Sex: Unknown Functional Status Question Answer Note LastModified by [facility] Details LastModified Time Do you use any illicit or recreational drugs? No Information not available 06/22/2023 Do you or have you ever used any other forms of tobacco or nicotine? No Information not available 06/22/2023 What is your level of alcohol consumption? Occasional Information not available 06/22/2023 Mental Status None recorded. Family History Relationship Description Onset Age of this Age Resolved Age Notes LastModified by Organization Details LastModified Time Father Malignant neoplastic disease [email or web address] Not available 06/12 09:37:18 Brother Malignant neoplastic disease [email or web address] Not available 06/12 09:37:32 Mother Disorder of thyroid gland dasbridgern Not available 06/12 09:38:47 Medical History Condition Response Coronary Artery Disease N Other N Atrial Fibrillation N High Blood Pressure Y Thyroid Problems Y Kidney or Bladder Problems N GI Problems Y Depression N COPD N Blood Clots N Eating Disorder N Skin Problems N Anemia Y Heart Attack (AL) N Diabetes N Anxiety Disorder N Muscle, Joint, or Bone Problems N Seizures/Epilepsy N Arthritis N Acid Reflux (GERD) Y Cancer Y Stroke N Asthma N Allergies N ADHD N Substance Abuse N High Cholesterol Y Hepatitis N Liver Disease N Schizophrenia N Headaches N Osteoporosis N Heart Failure N Immunizations Vaccine Type Date Status Note Provider Nam e and Address Organization Details Recorded Time Influenza, recombinant, quadrivalent, PF 0 completed Delmy Alan [place] null, [place] [facility] 03/10/2024 08:02:41 Influenza, high-dose, quadrivalent, PF 3 completed KRUPA [place], [place] [facility] 03/10/2024 08:02:41 COVID-19, mRNA, LNP-S, PF, 30 mcg/0.3 mL dose 1 [place]RUPA [place] [facility] 03/10/2024 08:02:41 COVID-19, mRNA, LNP-S, PF, 30 mcg/0.3 mL dose 1 [place] KRUPA [place] [facility] 03/10/2024 08:02:41 COVID-19, mRNA, LNP-S, PF, 30 mcg/0.3 mL dose 1 [place]RUPA [place] [facility] 03/10/2024 08:02:41 pneumococcal polysaccharide PPV23 1 [place]RUPA [place] [facility] 03/10/2024 08:02:41 influenza, unspecified formulation 2 completed [place]RUPA [place] [facility] 03/10/2024 08:02:41 Tdap 4 [place] KRUPA [place] [facility] 03/10/2024 08:02:42 Pneumococcal conjugate PCV 13 2 completed KRUPA [place] [facility] 03/10/2024 08:02:42 COVID-19, mRNA, LNP-S, PF, 50 mcg/0.5 mL 4 completed Not Available [facility] 06/24/2024 08:19:36 Influenza, high-dose, quadrivalent, PF 2 completed Delmy Alan [place], [place] [facility] 06/24/2024 08:20:51 Influenza, high-dose, trivalent, PF 4 completed Raj Cotter DO Attn: Accounting,[address] [facility], [place], [address], [facility] 12/26/2023 18:26:10 Past Encounters Encounter ID Performer Location Encounter Start Date Encounter Closed Date Diagnosis/Indication Diagnosis SNOMED-CT Code Diagnosis ICD10 Code Diagnosis Note [id number] Raj Cotter DO [facility] [place] [address] [facility] [address] [place] [address] 06/22/2023 09:17:01 06/22/2023 11:07:35 Dyslipidemia 529313901 E78.5 Chronic conditionA t goalAtorva statin 10 mg daily Hypothyroidism 25384420 E03.9 Chronic conditionA t goalLevoth yroxine 100 mcg daily Essential hypertension 80498430 I10 Chronic conditionA t goalLosart an 50 mgMetoprol ol Gastroesop hageal reflux disease without esophagitis 056518799 K21.9 Chronic conditionA t goalPantop razole 40 mg daily Obesity 981331835 E66.9 Chronic conditionN ot at [facility] y dietWeight loss [id number] Raj Cotter DO [facility] [place] [address] [facility] [address] [place] [address] 12/26/2023 08:57:37 12/26/2023 10:26:18 Dyslipidemia 318503165 E78.5 Chronic conditionA t goalAtorva statin 10 mg daily Essential hypertension 18277179 I10 Chronic conditionA t goalLosart an 50 mgMetoprol ol Gastroesop hageal reflux disease without esophagitis 506522185 K21.9 Chronic conditionA t goalPantop razole 40 mg daily Hypothyroidism 09415795 E03.9 Chronic conditionA t goalLevoth yroxine 100 mcg daily Obesity 596202301 E66.9 Chronic conditionN ot at [facility] y dietWeight loss Anemia 967304524 D64.9 Administra tion of influenza vaccine 71254350 Z23 [id number] Raj Cotter, DO [facility] [place] [address] [facility] [address] [facility] [place] [address] 03/10/2024 07:50:46 03/11/2024 12:43:37 Pain of left knee joint 5120721725 [address] ls spinetende r left SI jointknee exam unremarkab leadd kenalog 60 mg IM lGMorder a mri of the ls spine Low back pain 355932610 M54.50 Morbid obesity 820427221 E66.01 Chronic conditionN ot at [facility] y dietWeight loss [id number] Raj Cotter, DO [facility] [place] [address] [facility] [address] [facility] [place] [address] 06/24/2024 08:12:47 06/26/2024 09:19:24 Cellulitis of toe of left foot 0604966596 L03.032 seeing specialist appears to be a mechanical issuebunio n Essential hypertension 19493611 I10 Chronic conditionA t goalLosart an 50 mgMetoprol ol Gastroesop hageal reflux disease without esophagitis 380544588 K21.9 Chronic conditionA t goalPantop razole 40 mg daily Obesity 752103896 E66.9 Chronic conditionN ot at [facility] y dietWeight losszepbou nd 2.5 mg q week History of malignant neoplasm of prostate 845458471 Z85.46 sees urology Glucose le emely above reference range 33202608 R73.09 Iron defic iency anemia 89645953 D50.9 Obese class III 07678521 5 E66.813 Chronic conditionN ot at [facility] y dietWeight loss Health Concerns Section Related Observation LastModified by Organization Detai ls LastModified Time None Recorded Concern Status LastModified by Organization Details LastModified Time None Recorded Advance Directives Directive None Recorded Payers Insurance Date Sequence Insurance Name Policy Number Policy Chang Covered Member ID Chang Member ID Guarantor Name 06/24/2024 1 [place] Nj Amezcua [id number] Nj Amezcua 06/24/2024 2 [employer] SUPPLEMENTAL - [employer]URANCE (MEDICARE SUPPLEMENT) Nj Amezcua [id number] Nj Amezcua 06/24/2024 [place] [facility] Nj Araujo Byronomar [id number] Nj Amezcua Notes Date Note Type Note Provider Name and Address Organization Details Recorded Time 06/22/2023 text/html Establish care Raj Cotter DO Attn: Accounting,[address] [place], [address], [place] [facility] 06/22/2023 12:54:37 03/10/2024 text/html post discharge follow upleft knee painpast monthwas in the ERhad a ct ls spinebulging diskshad a x ray left knee Raj Cotter DO Attn: Accounting,[address] [facility], [place], [address], [place] [facility] 03/10/2024 09:52:22 06/24/2024 text/html 4 month follow u p visithas been under going a foot infection Raj Cotter DO Attn: Accounting,[address] [place], [address], [place] [facility] 06/25/2024 08:08:54
--- OUTSIDE RECORDS SUMMARY | 2024-08-23 13:51 | XMS_ITS | Encounter Summary ---
Author Organization [facility] Address [address] [facility] [place] [address] Care Team Providers Care Plate Driller Name Role Phone Unavailable Primary Care Provider Unavailabl e Encounter Details Date Type Department Care Team (Late st Contact Info) Description 07/18/2022 Lab Requisition [facility] - DermPath Lab [address] [place] [id number] Humza Bassett MD [address] [place] [address] Social History Tobacco Use Types Packs/Day Years Used Date Smoking Tobacco: Never Assessed Sex and Gender Information Value Date Recorded Sex Assigned at Not on file Legal Sex Male 6:31 AM CDT Gender Identity Not on file Sexual Orientation Not on file documented as of this encounter Plan of Treatment Not on file documented as of this encounter Procedures Procedure Name Priority Date/Time Associated Diagnosis Comments DERMATOPATHOLOGY Routine 07/17/2022 12:0 0 AM CDT documented in this encounter Results * DERMATOPATHOLOGY (07/17/2022 12:00 AM CDT) Case Report Dermatopathology Report Case: [id number] Authorizing Provider: Humza Bassett MD Collected: 07/17/2022 12:00 AM Ordering Location: [facility] DermPath Lab Received: 07/18/2022 06:43 AM Pathologist: Valencia Velazco MD Specimen: Skin, right ant shoulder 3 7:50 AM CDT DERMATOPATHOLOGY LABORATORY Final Diagnosis Specimen A. SKIN, right ant shoulder: LICHEN PLANUS-LIKE KERATOSIS (BENIGN LICHENOID KERATOSIS) (L82.1) POST-INFLAMMATORY PIGMENT ALTERATION (L81.9) 3 7:50 AM CDT DERMATOPATHOLOGY LABORATORY at 0750 CDT Clinical History BCCA vs SK vs SCCA Path#[id number] 3 7:50 AM CDT DERMATOPATHOLOGY LABORATORY Gross Description Specimen A: Received is one formalin filled container labeled with the patient's name and designated right ant shoulder. The specimen consists of a shave biopsy measuring 5x4x1 mm. Jar 0. 3 7:50 AM CDT DERMATOPATHOLOGY LABORATORY Microscopic Description Specimen A. SKIN, right ant shoulder: The epidermis is mildly acanthotic. There is a lichenoid infiltrate with vacuolar changes of basilar keratinocytes and scattered necrotic keratinocytes. MART-1/Melan-A immunohistochemical stain fails to highlight a melanocytic proliferation. There is abundant melanin within melanophages around the superficial vascular plexus. 3 7:50 AM CDT DERMATOPATHOLOGY LABORATORY Disclaimer An external and internal positive and negative controls are appropriate for the histochemical, immunohistochemical and immunofluorescence stain(s) in this case (if any), except where stated explicitly. The performance characteristics of the stain(s) cited in this report were developed and its performance characteristic determined by the Dermatopathology Laboratory at [facility], directed by Dr. Rafat Magana. These tests need not be, and therefore are not, approved by the [place] Food and Drug Administration. The tests are used for clinical purposes. Billing Codes Specimen Charges Stain Charges 78955 1 76716 1 3 7:50 AM CDT DERMATOPATHOLOGY LABORATORY Embedded Images 3 7:50 AM CDT DERMATOPATHOLOGY LABORATORY Pathology/Cytolog y TISSUE SPECIMEN FROM SKIN / Unknown 07/17/2022 07/18/2022 6:43 AM CDT us Humza Bassett MD LAB - PATHOLOGY/CYTOLOGY ORDER GABINO Final Result DERMATOPATHOLOGY LABORATORY [facility] - Department of Dermatology [address] [place] [address], [facility] [phone] documented in this encounter Visit Diagnoses Not on filedocumented in this encounter
--- OUTSIDE RECORDS SUMMARY | 2024-08-23 13:51 | XMS_ITS | Patient Health Record ---
Author Organization [facility] Address [address] [place], [place] [address] Care Team Providers Care Monorail Helper Name Role Phone BESSIE CAMPBELL Unavailable [phone] Raj Gould Unavailable Unavailable JUAREZ CARDONA Unavailable [phone] Allergies No Known Allergies Results Component Value Reference Range Notes MRI : Foot, Left With and Wi thout Contrast Reviewed date:06/26/2024 01:03:15 PM Interpretation:SEE MRI REPORT Performing Lab: Notes/Report: SEE MRI REPORT Reason For Referral No Information Medications Medication SIG (Take, Route, Frequency, Duration) Notes Start Date End Date Status Atorvastatin Calcium 10 MG 1 tablet Oral ly Once a day Active amLODIPine Benzoate 1 MG/ML 5 mL Orally Once a day Active Pantoprazole Sodium 20 MG 1 tablet 1/2 t o 1 hour before morning meal Orally Once a day Active Levothyroxine Sodium 25 MCG 1 tablet in the morning on an empty stomach Orally Once a day Active Losartan Potassium 25 MG 1 tablet Orally Once a day Active Immunizations Vaccine Route Administration Date Status Comme nts Influenza, high dose seasonal Unknown 12/26/2023 Admini stered Influenza, high dose seasonal Unknown 12/26/2023 Admini stered Influenza, high-dose seasona l, quadrivalent, preservative free >65 yrs Unknown 11/25/2021 Administered Influenza, high-dose seasona l, quadrivalent, preservative free >65 yrs Unknown 01/19/2023 Administered Influenza, high-dose seasona l, quadrivalent, preservative free >65 yrs Unknown 01/19/2023 Administered Influenza, high-dose seasona l, quadrivalent, preservative free >65 yrs Unknown 01/19/2023 Administered Influenza, high-dose seasona l, quadrivalent, preservative free >65 yrs Unknown 01/19/2023 Administered Influenza, unspecified formulation Unknown 11/12/2020 Not Administered Influenza, unspecified formulation Unknown 11/12/2020 Not Administered Influenza, unspecified formulation Unknown 12/05/2021 Administered Influenza, unspecified formulation Unknown 12/05/2021 Administered Influenza, unspecified formulation Unknown 12/05/2021 Administered Influenza, unspecified formulation Unknown 12/05/2021 Administered Pfizer-Biontech Covid-19 Vaccine 1st dose Unknown 03/26/2020 Administered Pfizer-[employer]iontech Covid-19 Vaccine 1st dose Unknown 03/26/2020 Administered Pfizer-Biontech Covid-19 Vaccine 1st dose Unknown 04/16/2020 Administered Pfizer-Biontech Covid-19 Vaccine 1st dose Unknown 04/16/2020 Administered Pfizer-Biontech Covid-19 Vaccine 1st dose Unknown 11/17/2020 Administered Pfizer-Biontech Covid-19 Vaccine 1st dose Unknown 11/17/2020 Administered Pneumococcal conjugate PCV 13 Unknown 01/04/2022 Admini stered Pneumococcal conjugate PCV 13 Unknown 01/04/2022 Admini stered Pneumococcal conjugate PCV 13 Unknown 01/04/2022 Admini stered Pneumococcal conjugate PCV 13 Unknown 01/04/2022 Admini stered Pneumococcal polysaccharide PPV23 Unknown 12/06/2020 Administered Pneumococcal polysaccharide PPV23 Unknown 12/06/2020 Administered Pneumococcal polysaccharide PPV23 Unknown 12/06/2020 Administered Pneumococcal polysaccharide PPV23 Unknown 12/06/2020 Administered Tdap Unknown 07/09/2013 Administered Tdap Unknown 07/09/2013 Administered Social History Tobacco Use: Social History Observation Description Date Details (start date - stop date) Never Smoker NA - NA Tobacco Control (Standard) Question Answer Notes Tobacco use: Nonsmoker Vital Signs Height-cm 180.34 cm 08/06/2024 Weight-kg 122.47 kg 08/06/2024 Height 71 in 08/06/2024 Weight 270 lbs 08/06/2024 BMI 37.65 kg/m2 08/06/2024 Encounters Encounter Location Date Provider Diagnosis [facility] [address] [id number] 07/08/2024 JUAREZ CARDONA 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.521 ; Hammer toe of left foot M20.42 ; Left foot pain M79.672 and Difficulty in walking R26.2 [facility] [address] [id number] 07/23/2024 BESSIE CAMPBELL 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.521 ; Other acute osteomyelitis of left foot M86.172 and Left foot pain M79.672 [facility] [address] [id number] 08/06/2024 BESSIE CAMPBELL 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.521 ; Other acute osteomyelitis of left foot M86.172 and Left foot pain M79.672 [facility] [address] [id number] 06/04/2024 BESSIE CAMPBELL 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.521 ; Other acute osteomyelitis of left foot M86.172 and Left foot pain M79.672 [facility] [address] [id number] 06/18/2024 BESSIE CAMPBELL 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.521 ; Other acute osteomyelitis of left foot M86.172 and Left foot pain M79.672 [facility] [address] [facility] [address] [place], [place] [id number] 06/25/2024 BESSIE CAMPBELL Assessments Encounter Date Diagnosis (ICD Code) Assessment Notes Treatment Notes Treatment Clinical Notes Section Notes 06/04/2024 Non-pressure chronic ulcer of other part of left foot limited to breakdown of skin (ICD-10 - L97.521) 06/04/2024 Other acute osteomyelitis of left foot (ICD-10 - M86.172) 06/18/2024 Non-pressure chronic ulcer of other part of left foot limited to breakdown of skin (ICD-10 - L97.521) 07/08/2024 Non-pressure chronic ulcer of other part of left foot limited to breakdown of skin (ICD-10 - L97.521) 07/08/2024 Hammer toe of left foot (ICD-10 - M20.42) 07/23/2024 Non-pressure chronic ulcer of other part of left foot limited to breakdown of skin (ICD-10 - L97.521) 08/06/2024 Non-pressure chronic ulcer of other part of left foot limited to breakdown of skin (ICD-10 - L97.521) 07/23/2024 Other acute osteomyelitis of left foot (ICD-10 - M86.172) 08/06/2024 Other acute osteomyelitis of left foot (ICD-10 - M86.172) 06/18/2024 Other acute osteomyelitis of left foot (ICD-10 - M86.172) 07/08/2024 Left foot pain (ICD-10 - M79.672) 06/04/2024 Left foot pain (ICD-10 - M79.672) 06/18/2024 Left foot pain (ICD-10 - M79.672) 07/08/2024 Difficulty in walking (ICD-10 - R26.2) 08/06/2024 Left foot pain (ICD-10 - M79.672) 07/23/2024 Left foot pain (ICD-10 - M79.672) [...] RTC 2 weeks for f/u with X-rays. 08/06/2024 Other The ulcer was debrided down to bleeding tissue. A dry sterile dressing was applied. The patient was given instruction on home dressing and told to use antibiotic ointment on the wound. The patient was instructed to minimize pressure on the wound and to call the office immediately if the wound should start to worsen. RTC 3 weeks 06/04/2024 Other Discussed MRI - pt deferred. The ulcer was debrided down to bleeding tissue. A dry sterile dressing was applied. The patient was given instruction on home dressing and told to use antibiotic ointment on the wound. The patient was instructed to minimize pressure on the wound and to call the office immediately if the wound should start to worsen. RTC 2 weeks for f/u with X-rays. 06/18/2024 Other MRI of left foot ordered The [...] for f/u with X-rays. Plan Of Treatment Next Appt Details Provider Name:BESSIE BARKER, 09/08/2024 07:40:00 AM, [address], [place], [place], [id number], Insurance Providers Payer Name Payer Address Payer Phone Subscriber Number Group Number Insured Name Patient Relationship to Insured Coverage Start Date Coverage End Date Medicare Part B [place] [address] [place] [address] [id number] SIL AREVALO Self - patient is the insured 9 [employer] Medicare Supplemental Benefit Plans [id number] [address] [address] [place], [place] [id number] SIL AREVALO Self - patient is the insured 9 Medical (General) History Medical History History ICD Code Cancer high blood pressure Surgical History Surgery Date(Month/Year) prostectomy Hernia
--- OUTSIDE RECORDS SUMMARY | 2024-08-23 13:52 | XMS_ITS | Clinical Summary ---
Author Organization [facility] Address [facility] [place] [address] Care Team Providers Care Journeyman Press Operator Name Role Phone Raj Gould DO Primary Care Provider [phone] Allergies No known active allergies Medications levothyroxine 100 MCG tablet Take 100 mcg by mouth every morning. Active amlodipine 5 MG tablet Take 5 mg by mouth daily. Active losartan 50 MG tablet Take 50 mg by mouth daily. Active aspirin 81 MG chewable tablet Chew 81 mg by mouth daily. Active pantoprazole EC 20 MG tablet Take 20 mg by mouth daily. Active Cholecalciferol (VITAMIN D3) 50 MCG (1999) Tab Active Active Problems Problem Noted Date Diagnosed Date Foraminal stenosis of lumbar region 03/28/2018 Spondylolisthesis of lumbar region 03/28/2018 Social History Tobacco Use Types Packs/Day Years [...] on file Sexual Orientation Not on file Last Filed Vital Signs Vital Sign Reading Time Taken Comments Blood Pressure 117/79 08/27/2019 8:15 AM CDT Pulse 57 08/27/2019 8:20 AM CDT Temperature 35.9 C (96.7 F) 08/27/2019 7:50 AM CDT Respiratory Rate 22 08/27/2019 8:20 AM CDT Oxygen Saturation 98% 08/27/2019 8:20 AM CDT Inhaled Oxygen Concentration - - Weight 122.5 kg (270 lb) 08/20/2019 10:28 AM CDT Height 180.3 cm (5' 11) 08/20/2019 10:28 AM CDT Body Mass Index 37.66 08/20/2019 10:28 AM CDT Plan of Treatment Health Maintenance Due Date Last Done Comments Hepatitis C 12/09/1971 DTaP, Tdap and Td Vaccines ( 1 - Tdap) 1972 Pneumococcal Vaccine: 50+ Ye ars (1 of 1 - PCV) 12/09/2003 Zoster Vaccines (1 of 2) 12/09/2003 Annual Medicare Wellness Visit 2018 COVID-19 Vaccine ( - 2023-2 5 season) 2023 RSV Immunization or 60+ Years (1 - 1-dose 75+ series) 2028 Colorectal Cancer Screening Colonoscopy (10 Years) 08/26/2029 08/27/2019 Meningococcal B Vaccine Aged Out No l onger eligible based on patient's age to complete this topic Meningococcal Vaccine Aged Out No azeem james eligible based on patient's age to complete this topic RSV Immunizations Under 20 Months Aged Out No longer eligible based on patient's age to complete this topic Insurance MEDICARE Care Teams Journeyman Press Operator Relationship Specialty Start Date End Date Raj Gould DO PCP - General FAMILY PRACTICE 03/28/18
--- OUTSIDE RECORDS SUMMARY | 2024-08-23 13:52 | XMS_ITS ---
Author Organization [place] [id number] [facility] Address [address] [place] [address] Care Team Providers Care Gas Operations Superintendent Name Role Phone Raj Cotter DO Primary Care Provider + Johnie Trent MD Unavailable [phone] Jass Chang MD Unavailable Active Problems Problem Noted Date Diagnosed Date Dizziness 01/23/2023 Pure hypercholesterolemia 01/23/2023 Essential hypertension, benign 01/23/2023 Vertigo 01/23/2023 Anemia 07/05/2022 Assessment & Plan (07/05/2022 7:31 AM CDT): New issue Mild Will recheck a cbc Sensorineural hearing loss (SNHL) of both ears 0 04/13/2022 Encounter for Medicare annual wellness exam 12/14 Assessment & Plan (01/04/2022 7:31 AM WATER QUALITY ANALYST): Chart reviewed Severe obesity (BMI 35.0-39.9) with comorbidity 01/04/2022 Assessment & Plan (07/05/2022 7:29 AM CDT): Healthy diet Regular exercise Assessment & Plan (01/04/2022 7:33 AM WATER QUALITY ANALYST): Healthy diet Regular exercise Dizziness and giddiness 01/04/2022 Assessment & Plan (01/04/2022 7:33 AM WATER QUALITY ANALYST): Add antivert 25 mg prn Full code status 12/06/2020 Assessment & Plan (12/06/2020 7:38 AM CDT): Discussed with patient approximately 20minutes End of life issues/Advanced Directives/Healthcare Surrogate. Discussed DNR. Encouraged to discuss further with family and consult oral therapist or complete [place] approved form, which I would be glad to assist them with completion. All questions answered. polst form filled out and signed Right bundle branch block 09/25/2018 Coronary artery disease invo lving yurok coronary artery of yurok heart without angina pectoris 09/25/2018 Assessment & Plan (07/05/2022 7:29 AM CDT): Stable Assessment & Plan (06/07/2020 9:31 AM CDT): Patient is well controlled. Continue current treatment. Dyslipidemia 09/25/2018 GERD (gastroesophageal reflux disease) 9 Assessment & Plan (06/07/2020 9:31 AM CDT): Patient is well controlled. Continue current treatment. Assessment & Plan (11/19/2019 7:42 AM CDT): Had EGD and colonoscopy Assessment & Plan (10/24/2018 7:37 AM CDT): Patient is well controlled. Continue current treatment. Assessment & Plan (09/12/2018 3:34 PM CDT): Add protonix 40 mg daily Prostate cancer 04/24/2018 Assessment & Plan (07/05/2022 7:29 AM CDT): He continues to follow with Urology. His most recent PSA was 0.5. I do not have this in his chart I will contact his urology office for the most recent note Assessment & Plan (04/24/2019 7:36 AM CDT): Doing well Spondylolisthesis of lumbar region 03/28/2018 Paresthesia 01/21/2018 Hypertension 06/09/2016 Assessment & Plan (07/05/2022 7:29 AM CDT): Patient is well controlled. Continue current treatment. Assessment & Plan (06/07/2020 9:31 AM CDT): Stop amlodipine Start toprol xl 25 mg daily Assessment & Plan (04/24/2019 7:36 AM CDT): Patient is well controlled. Continue current treatment. Assessment & Plan (10/24/2018 7:37 AM CDT): Patient is well controlled. Continue current treatment. Assessment & Plan (09/12/2018 3:33 PM CDT): Patient is well controlled. Continue current treatment. Hypothyroidism 06/09/2016 Assessment & Plan (01/04/2022 7:42 AM WATER QUALITY ANALYST): tsh and free t4 Assessment & Plan (10/24/2018 7:37 AM CDT): Patient is well controlled. Continue current treatment. lab Pain in right knee 10/08/2015 Current Treatment and Therapy Plans No current plan information found. Past Treatment and Therapy Plans No past plan information found. Lifetime Dose Tracking * Chemical Lifetime Dose Automatic Entry Manual Entr y Fluoro Time 0.4 minutes 0.4 minutes 0 minutes Air kerma at the reference point (Ka,r) 18.87 mGy 1 8.87 mGy 0 mGy Resolved Problems Problem Noted Date Diagnosed Date Resolved Date Pre-op exam 05/26/2021 01/04/2022 Assessment & Plan (05/26/2021 3:02 PM CDT): Cleared for cataract extraction Pre-op exam 01/12/2020 12/06/2020 Assessment & Plan (01/12/2020 11:23 AM WATER QUALITY ANALYST): Cleared medically Abdominal pain 04/24/2019 12/06/2020 Assessment & Plan (11/19/2019 7:41 AM CDT): Ventral hernia See surgeon Assessment & Plan (04/24/2019 7:35 AM CDT): See G.I Chest pressure 09/25/2018 12/06/2020 Arm pain 09/12/2018 12/06/2020 Assessment & Plan (09/12/2018 3:35 PM CDT): See Dr. Trent Believe needs stress test EKG reviewed Body mass index (BMI) of 40.0-44.9 in adult 01/17/2017 12/06/2020 Assessment & Plan (04/24/2019 7:36 AM CDT): Healthy diet Lose weight Morbid (severe) obesity due to excess calories 01/17/2017 01/04/2022 Assessment & Plan (10/24/2018 7:37 AM CDT): Healthy diet Lose weight
--- OUTSIDE RECORDS SUMMARY | 2024-08-23 13:52 | XMS_ITS ---
Author Organization [facility] Address [address] [place], [place] [address] Care Team Providers Care Hat Model Name Role Phone BESSIE CAMPBELL Unavailable [phone] Raj Gould Unavailable Unavailable JUAREZ CAMPBELL Unavailable [phone] REASON FOR VISIT *Wound check Medications Medication SIG (Take, Route, Frequency, Duration) Notes Start Date End Date Status amLODIPine Benzoate 1 MG/ML 5 mL Orally Once a day Active Pantoprazole Sodium 20 MG 1 tablet 1/2 t o 1 hour before morning meal Orally Once a day Active Levothyroxine Sodium 25 MCG 1 tablet in the morning on an empty stomach Orally Once a day Active Losartan Potassium 25 MG 1 tablet Orally Once a day Active Atorvastatin Calcium 10 MG 1 tablet Oral ly Once a day Active Vital Signs Height 71 in 07/08/2024 Weight 270 lbs 07/08/2024 BMI 37.65 kg/m2 07/08/2024 Height-cm 180.34 cm 07/08/2024 Weight-kg 122.47 kg 07/08/2024 Encounters Encounter Location Date Provider Diagnosis [facility] [address] [place], [place] [id number] 07/08/2024 JUAREZ CAMPBELL 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.521 ; Hammer toe of left foot M20.42 ; Left foot pain M79.672 and Difficulty in walking R26.2 Assessments Encounter Date Diagnosis (ICD Code) Assessment Notes Treatment Notes Treatment Clinical Notes Section Notes 07/08/2024 Non-pressure chronic ulcer of other part of left foot limited to breakdown of skin (ICD-10 - L97.521) 07/08/2024 Hammer toe of left foot (ICD-10 - M20.42) 07/08/2024 Left foot pain (ICD-10 - M79.672) 07/08/2024 Difficulty in walking (ICD-10 - R26.2) Plan Of Treatment Next Appt Details Provider Name:BESSIE BARKER, 09/08/2024 07:40:00 AM, [address], [place], [place], [phone], Progress Notes * IMELDARajendra SIL ADOB: [birth year] (68 yo M)Acc No.[id number]:07/08/2024 Patient: SIL BLAS Provider: Gayel Campbell DPM :1955 A ge:68 Y S ex:Male Date:07/08/2024 Address:[address] [place] [place] [address] [id number] Subjective: * Chief Complaints: * 1 . *Wound check. * HPI: H PI: Follow Up Visit P atient presents for follow up visit for a wound on the left 2nd toe. , Patient states their problem is, unchanged. M A: VANDANA, . * Medical History: C ancer, High blood [...] List reviewed and reconciled with the patient Objective: * Vitals: W t:270lbs, Wt-k.47 kg, Ht: 71 in, Ht-cm: 180.34 cm, BMI:37.65Index, Body Surface Area: 2.47. Assessment: * Assessment: 1. 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 H ammer toe of left foot - M20.42 3 . L eft foot pain - M79.672 4 . D ifficulty in walking - R26.2 Plan: * Treatment: * Immunizations: Immunization record has been reviewed and updated. * Procedure Codes: 1 1042 DEBRIDE SKIN/TISSUE, 12037 X-RAY EXAM OF FOOT, Modifiers: LT * Billing Information: * Visit Code: * Procedure Codes: 36347 DEBRIDE SKIN/TISSUE. 24509 X-RAY EXAM OF FOOT. Modifiers: LT * Electronic signature of DANIELLE CADE DPM on 08/23/2024 at 01:51 PM CDT Sign off status: Pending * Provider: Gayle Campbell DPM Date: 0 07/08/2024 Generated for Cass montes/Tree/Sanaitting on: 0 08/23/2024 01:51 PM CDT History and Physical Notes * HPI (History of Present Illness) Category Sub-Category Detail Notes Category Not es HPI Follow Up Visit Patient presents for follow up visit for a wound on the left 2nd toe. , Patient states their problem is, unchanged. MA: VANDANA,
--- OUTSIDE RECORDS SUMMARY | 2024-08-23 13:52 | XMS_ITS | Clinical Summary ---
Author Organization [place] [id number] Address [address] [place] [address] Care Team Providers Care Rotary Dump Operator Name Role Phone Raj Cotter DO Primary Care Provider + Johnie Trent MD Unavailable [phone] Jass Chang MD Unavailable Allergies No known active allergies Medications aspirin 81 mg enteric coated tablet 1 tablet (81 mg total) daily Active sildenafil citrate (VIAGRA ORAL)Indication s:1/5 of a tablet Take by mouth Active cholecalciferol (VITAMIN D-3) 5,000 unit tablet Take 0.4 tablets (2,000 Units total) by mouth daily Active cyanocobalamin, vitamin B-12, (VITAMIN B-12 ORAL) Take 1 tablet by mouth daily Active amLODIPine (NORVASC) 5 mg tablet Take 1 tablet (5 mg total) by mouth daily 90 tablet 3 06/07/2020 Active ascorbic acid (VITAMIN C ORAL) Take 1 tablet by mouth daily Active pantoprazole DR (PROTONIX) 40 mg EC tablet TAKE ONE TABLET DAILY. 90 tablet 1 11/21/2022 Active atorvastatin (LIPITOR) 10 mg tablet TAKE ONE TABLET DAILY. 90 tablet 1 11/21/2022 Active levothyroxine (SYNTHROID) 100 mcg tablet TAKE ONE TABLET DAILY. 90 tablet 1 12/11/2022 Active metoprolol XL (TOPROL-XL) 25 mg extended release tablet TAKE ONE TABLET DAILY. 30 tablet 2 02/06/2023 Active ferrous sulfate 325 mg (65 mg of elemental iron) tablet Take 1 tablet (325 mg total) by mouth daily Active Active Problems Problem Noted Date Diagnosed Date Dizziness 01/23/2023 Pure hypercholesterolemia 01/23/2023 Essential hypertension, benign 01/23/2023 Vertigo 01/23/2023 Anemia 07/05/2022 Assessment & Plan (07/05/2022 7:31 AM CDT): New issue Mild Will recheck a cbc Sensorineural hearing loss (SNHL) of both ears 0 04/13/2022 Encounter for Medicare annual wellness exam 12/14 Assessment & Plan (01/04/2022 7:31 AM CAREER DEVELOPMENT COORDINATOR): Chart reviewed Severe obesity (BMI 35.0-39.9) with comorbidity 01/04/2022 Assessment & Plan (07/05/2022 7:29 AM CDT): Healthy diet Regular exercise Assessment & Plan (01/04/2022 7:33 AM CAREER DEVELOPMENT COORDINATOR): Healthy diet Regular exercise Dizziness and giddiness 01/04/2022 Assessment & Plan (01/04/2022 7:33 AM CAREER DEVELOPMENT COORDINATOR): Add antivert 25 mg prn Full code status 12/06/2020 Assessment & Plan (12/06/2020 7:38 AM CDT): Discussed with patient approximately 20minutes End of life issues/Advanced Directives/Healthcare Surrogate. Discussed DNR. Encouraged to discuss further with family and consult international logistics analyst or complete [place] approved form, which I would be glad to assist them with completion. All questions answered. polst form filled out and signed Right bundle branch block 09/25/2018 Coronary artery disease invo lving sycuan coronary artery of sycuan heart without angina pectoris 09/25/2018 Assessment & [...] 06/09/2016 Assessment & Plan (01/04/2022 7:42 AM CAREER DEVELOPMENT COORDINATOR): tsh and free t4 Assessment & Plan (10/24/2018 7:37 AM CDT): Patient is well controlled. Continue current treatment. lab Pain in right knee 10/08/2015 Resolved Problems Problem Noted Date Diagnosed Date Resolved Date Pre-op exam 05/26/2021 01/04/2022 Assessment & Plan (05/26/2021 3:02 PM CDT): Cleared for cataract extraction Pre-op exam 01/12/2020 12/06/2020 Assessment & Plan (01/12/2020 11:23 AM CAREER DEVELOPMENT COORDINATOR): Cleared medically Abdominal pain 04/24/2019 12/06/2020 Assessment [...] 7:37 AM CDT): Healthy diet Lose weight Encounters Date Type Department Care Team Description 07/18/2024 8:12 AM CDT - 07/18/2024 11:59 PM CDT Hospital Encounter [facility] [address] [place] [address] Jass Chang MD Bulge of lumbar disc without myelopathy; Neural foraminal stenosis of lumbar spine; Radiculopathy, lumbar region Discharge Disposition: Discharge to home or self care 07/15/2024 12:33 PM CDT - 07/15/2024 11:59 PM CDT Hospital Encounter [facility] [address] [place] [id number] Malignant neoplasm of prostate (HCC) Discharge Disposition: Discharge to home or self care 07/04/2024 1:21 PM CDT - 07/04/2024 11:59 PM CDT Hospital Encounter [facility] [address] [facility] [place] [address] Discharge Disposition: Discharge to home or self care 07/04/2024 1:14 PM CDT - 07/04/2024 11:59 PM CDT Hospital Encounter [facility] [address] [address] Jass Chang MD Bulge of lumbar disc without myelopathy (Primary Dx); Spinal stenosis, lumbar region, without neurogenic claudication; Neural foraminal stenosis of lumbar spine; Radiculopathy, lumbar region Discharge Disposition: Discharge to home or self care from Last 3 Months Immunizations Immunization Administration Dates Next Due Influenza, Quadrivalent, Hig h Dose, Preservative Free, Intrr 01/19/2023 Influenza, Quadrivalent, Rec ombinant, Egg Free, Preservative Free, Intramuscular 11/19/2019 Influenza, Unspecified 12/05/2021,2020(Deferred: Patient Refused) Pneumococcal Conjugate PCV 13 01/04/2022 Pneumococcal Polysaccharide PPV23 12/06/2020 Tdap 07/09/2013 Surgical History Surgery Date Site/Laterality Comments COLONOSCOPY HERNIA REPAIR 02/13/2020 - 02/11/2021 With PROSTATECTOMY 02/12/2018 - 02/11/2019 Medical History Medical History Date Comments Hypertension Cancer (HCC) Hyperlipidemia Coronary artery disease Dizziness HL (hearing loss) Family History Medical History Relation Name Comments Cancer Brother Cancer Father Emphysema Mother Relation Name Status Comments Brother Alive Father Mother Social History Tobacco Use Types Packs/Day Years Used Date Smoking Tobacco: Never Smokeless Tobacco: Never Tobacco Cessation:Counseling Given: Not Answered Alcohol Use Standard Drinks/Week Comments Not Currently 0 (1 standard drink = 0.6 oz pur e alcohol) AUDIT-C Answer Date Recorded Q1: How often do you have a drink containing alc ohol? Monthly or less 01/19/2023 Q2: How many drinks containi ng alcohol do you have on a typical day when you are drinking? 1 or 2 01/19/2023 Frequency of Binge Drinking Not on file 09/2022 PHQ-2 Answer Date Recorded PHQ-2 Total Score (If total score is 3 or more points, staff should administer the PHQ-9) 0 01/19/2023 Sex and Gender Information Value Date Recorded Sex Assigned at Not on file Legal Sex Male 1:20 AM CAREER DEVELOPMENT COORDINATOR Gender Identity Not on file Sexual Orientation Not on file Obstetrics History Last Filed Vital Signs Vital Sign Reading Time Taken Comments Blood Pressure 139/92 07/18/2024 9:26 AM CDT Pulse 69 07/18/2024 9:26 AM CDT Temperature 36.6 C (97.8 F) 07/18/2024 8:24 AM CDT Respiratory Rate 20 07/18/2024 8:24 AM CDT Oxygen Saturation 95% 07/18/2024 9:26 AM CDT Inhaled Oxygen Concentration - - Weight 130.7 kg (288 lb 3.2 oz) 07/04/2024 1:30 PM CDT Height 180.3 cm (5' 11) 07/04/2024 1:30 PM CDT Body Mass Index 40.2 07/04/2024 1:30 PM CDT Plan of Treatment Health Maintenance Due Date Last Done Comments Hepatitis B Screening 12/09/1971 Zoster Vaccine (1 of 2) 12/09/2003 DTaP/Tdap/Td Vaccine (2 - Td or Tdap) 07/10/2023 07/09/2013 Covid-19 Vaccine ( - 2023-2 5 season) 2023 11/17/2020, 04/16/2020, 03/26/2020 Depression Screening 01/20/2024 01/19/2023, 01/04/2022, 12/06/2020, Additional history exists Fall Risk Assessment 01/20/2024 01/19/2023, 01/04/2022, 12/06/2020, Additional history exists Well Visit 65+ 01/20/2024 01/19/2023, 12/14, 12/06/2020, Additional history exists Influenza Vaccine (#1) 2024 , 01/19/2023, 12/05/2021, Additional history exists Colon Cancer Screening-Colonoscopy 08/26/2029 08/27/2019 Colon Cancer Screening-CT Colonography Discontinued 08/27/2019 Colon Cancer Screening-DNA Stool Discontinued 08/27/19 20 Colon Cancer Screening-Sigmoidoscopy Discontinued 08/27/2019 Hepatitis C Screening Completed 05/19/2021 Pneumococcal vaccine 65+ Completed 01/04/2022, 11/13 Colon Cancer Screening-FIT Discontinued 07/11, 07/10/2022, 07/07/2022, Additional history exists Prostate Cancer Screening-PSA Discontinued , 01/15/2018, 12/26/2016, Additional history exists Procedures Procedure Name Priority Date/Time Associated Diagnosis Comments PAIN MGMT IMAGING LUMBAR/SACRAL SELECTIVE NERVE ROOT INJ (TFE) BILATERAL Schedule Routine, Read Routine (OP Routine) 07/18/2024 9:15 AM CDT 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 Radiculopathy, lumbar region PET/CT PROSTATE CANCER PSMA SKULL TO THIGH Schedule Routine, Read Routine (OP Routine) 07/15/2024 2:03 PM CDT Malignant neoplasm of prostate (HCC) MSK MR OUTSIDE REFERENCE Routine 07/04/2024 1:21 PM CDT PSA SCREEN Routine 08/04/2022 7:08 AM CDT FIT OCCULT BLOOD, FECAL Routine 07/11/2022 12:00 AM CDT HEPATITIS C ANTIBODY Routine 05/19/2021 7:11 AM CDT Medicare annual wellness visit, subsequent Essential hypertension Epigastric pain COLONOSCOPY Routine 08/27/2019 from Last 3 Months or Most Recently Relevant to Health Maintenance Results * Imaging Lumbar/Sacral Selective Nerve Root INJ (TFE) Bilateral (61299) (07/18/2024 9:15 AM CDT) Narrative DONNA_MHB_MHE - 07/18/2024 1:33 PM CDT The images from this study are not interpreted by Radiology. Please refer to the physician's procedure / OR operative note. us Jass Chang MD IMAbiel PAIN MGMT PROCEDURES Final R esult IKE_RHODA_MHB_MHE * PET/CT Prostate Cancer PSMA Skull to Thigh (07/15/2024 2:03 PM CDT) Anatomical Region Laterality Modality N/A Positron Emissio n Tomography (PET) 07/15/2024 4:24 PM CDT Narrative 07/15/2024 4:37 PM CDT EXAM DESCRIPTION: PET/CT PROSTATE CANCER PSMA SKULL TO THIGH RADIOPHARMACEUTICAL: 9.5 mCi F-18 prostate specific membrane antigen (PSMA) via a right antecubital vein IV site REASON FOR STUDY: Prostate cancer diagnosed in 2019. Prostatectomy. PSA reportedly 0.6 ng/mL. TECHNIQUE: After intravenous administration of PSMA, noncontrast CT images were obtained for attenuation correction and for fusion with emission PET images to allow for anatomical localization of PET findings. Emission PET images were then obtained. The reported standardized uptake value maximum (SUVmax) values have been normalized to body weight (SUVbw). The area imaged spanned the region from the skull base to the proximal thighs. The time from injection to start of imaging was 59 minutes. COMPARISON: CT abdomen and pelvis 08/05/2008 FINDINGS: For reference, the maximum SUV of the ascending thoracic aorta is 3.4 . The maximum SUV of the liver is 10 . Head: Normal uptake is seen in the included portion of the brain. Neck: Physiologic uptake in the salivary glands. No suspicious cervical lymphadenopathy. Chest: No abnormal lymphadenopathy in the axillae, mediastinum, or mis. Noncalcified 2 mm nodule in the lingula shows no abnormal uptake. Heart size is within normal limits. Trace pericardial effusion. No pleural effusion. Abdomen and Pelvis: No abnormal focal liver lesion. No abnormality of the gallbladder. The spleen is normal. Normal noncontrast appearance of the pancreas. The adrenal glands are normal. Large right renal cyst measuring 14 cm shows no abnormal uptake. There are other smaller right renal cysts. No hydronephrosis. The bladder is decompressed and incompletely evaluated. Physiologic uptake within the proximal small bowel. Prior prostatectomy. No abnormal lymph nodes in the abdomen or pelvis. Bones: No acute or aggressive appearing osseous lesions. IMPRESSION: No abnormal uptake to suggest metastatic disease. Prior prostatectomy. Noncalcified 2 mm nodule in the lingula shows no abnormal uptake but is small and may be below PET resolution. Attention on follow-up imaging is recommended. THIS IS AN ELECTRONICALLY VERIFIED FINAL REPORT 07/15/2024 4:37 PM - Electronically signed by Matt Padilla M.D. LB: JULIET Report ID: [id number] Reading Location: [id number] Procedure Note Matt Padilla MD - 07/15/2024 EXAM DESCRIPTION: PET/CT PROSTATE CANCER PSMA SKULL TO THIGH RADIOPHARMACEUTICAL: 9.5 mCi F-18 prostate specific membrane antigen(PSMA) via a right antecubital vein IV site REASON FOR STUDY: Prostate cancer diagnosed in 2019. Prostatectomy.PSA reportedly 0.6 ng/mL. TECHNIQUE: After intravenous administration of PSMA, noncontrast CT images were obtained for attenuation correction and for fusion with emission PET images to allow for anatomical localization of PET findings. Emission PET images were then obtained. The reported standardized uptake value maximum (SUVmax) values have been normalized to body weight (SUVbw). The areaimaged spanned the region from the skull base to the proximal thighs. The timefrom injection to start of imaging was 59 minutes. COMPARISON: CT abdomen and pelvis 08/05/2008 FINDINGS: For reference, the maximum SUV of the ascending thoracic aortais 3.4 . The maximum SUV of the liver is 10 . Head: Normal uptake is seen in the included portion of the brain. Neck: Physiologic uptake in the salivary glands. No suspicious cervical lymphadenopathy. Chest: No abnormal lymphadenopathy in the axillae, mediastinum, or mis. Noncalcified 2 mm nodule in the lingula shows no abnormal uptake. Heart size is within normal limits. Trace pericardial effusion. No pleural effusion. Abdomen and Pelvis: No abnormal focal liver lesion. No abnormality of the gallbladder. The spleen is normal. Normal noncontrast appearance of the pancreas. The adrenal glands are normal. Large right renal cyst measuring 14 cm showsno abnormal uptake. There are other smaller right renal cysts. No hydronephrosis. The bladder is decompressed and incompletely evaluated. Physiologic uptake within the proximal small bowel. Prior prostatectomy. No abnormal lymph nodes in the abdomen or pelvis. Bones: No acute or aggressive appearing osseous lesions. IMPRESSION: No abnormal uptake to suggest metastatic disease. Prior prostatectomy. Noncalcified 2 mm nodule in the lingula shows no abnormal uptake but issmall and may be below PET resolution. Attention on follow-up imaging isrecommended. THIS IS AN ELECTRONICALLY VERIFIED FINAL REPORT 07/15/2024 4:37 PM - Electronically signed by Matt Padilla M.D. LB: JULIET Report ID: [id number] Reading Location: [place] [address] Natan Alcantar MD IMG PET PROCEDURES Final Resu lt * MSK MR Outside Reference (07/04/2024 1:21 PM CDT) Narrative IKE_RHODA_RENETTA_MHE - 07/04/2024 1:21 PM CDT This order has been auto-finalized and does not contain a result. us Provider Transcribed Order IMG MRI PROCEDURES Fi nal Result IKE_GOPIWENDIE_MHB_MHE * PSA screen (08/04/2022 7:08 AM CDT) PSA 0.12 < OR = 4.00 ng/mL [facility] Comment: The total PSA value from this assay system is standardized against the WHO standard. The test result will be approximately 20% lower when compared to the equimolar-standardized total PSA (Odalis Noemi). Comparison of serial PSA results should be interpreted with this fact in mind. This test was performed using the Siemens chemiluminescent method. Values obtained from different assay methods cannot be used interchangeably. PSA levels, regardless of value, should not be interpreted as absolute evidence of the presence or absence of disease. 08/04/2022 7:08 AM CDT 08/04/2022 7:10 AM CDT Raj Cotter DO LAB BLOOD ORDERABLES Fin al Result Performing Organization Address [facility] Co de Phone Number [facility] [address] [place] [address] * FIT occult blood, fecal (07/11/2022 12:00 AM CDT) Fecal globulin by immunochemistry [facility] Comment: FECAL GLOBIN BY IMMUNOCHEMISTRY Micro Number: [id number] Test Status: Final Specimen Source: Insure (tm) fobt test card Specimen Quality: Adequate Fecal Globin: Not Detected 07/11/2022 07/11/2022 9:1 1 PM CDT Rich Cotter MD LAB BODY FLUIDS AND STOOLS O RDERABLES Final Result Performing Organization Address [facility] Co de Phone Number [facility] [address] [place] [address] * Hepatitis C antibody (05/19/2021 7:11 AM CDT) Hep C Ab NON-REACTI VE NON-REACT KAYCEE [facility] SIGNAL TO CUT-OFF 0.01 <1.00 [facility] Comment: HCV antibody was non-reactive. There is no laboratory evidence of HCV infection. In most cases, no further action is required. However, if recent HCV exposure is suspected, a test for HCV RNA (test code 96797) is suggested. For additional information please refer to http://education.Stepsss/faq/SSQ81m5 (This link is being provided for informational/ educational purposes only.) Blood specimen (specimen) 05/19/2021 7:11 AM CDT 05/19/2021 7:12 AM CDT Narrative [facility] - 05/20/2021 10:50 AM CDT FASTING:YES FASTING: YES us Raj Cotter DO LAB MICROBIOLOGY - GENER AL ORDERABLES Final Result [facility] [address] [place] [id number] * Colonoscopy (08/27/2019) Anatomical Region Laterality Modality Other us Kayden Templeton MD ENDOSCOPY PROCEDURES Final Result from Last 3 Months or Most Recently Relevant to Health Maintenance [place] [address] [facility] MEDICARE SUPPLEMENT INSURANCE MEDICARE [facility] MEDICARE SUPPLEMENT INSURANCE [place] [id number] MEDICARE [facility] MEDICARE SUPPLEMENT INSURANCE Advance Directives For more information, please contact: [phone] Documents on File Type Date Recorded Patient Core Measures Abstractor Expl anation ADVANCE DIRECTIVE 12/06/2020 ADVANCE DIRECTIVE 06/05/2012 12:00 AM JUAN DAVID R OF RENTAL CAR DELIVERER FINANCIAL/MEDICAL Care Teams Rotary Dump Operator Relationship Specialty Start Date End Date Raj Cotter DO PCP - General 07/16/18 Johnie Trent MD [address] [facility] [address] [address] Weight Loss Centre Manager Cardiology 09/20/18 Jass Chang MD [address] [facility] [address] Consulting Physician Pain Management 07/18/24
--- OUTSIDE RECORDS SUMMARY | 2024-08-23 13:52 | XMS_ITS | Clinical Summary ---
Author Organization [facility] Address [address] [place] [address] Care Team Providers Care Extension Service Agent Name Role Phone Unavailable Primary Care Provider Unavailabl e Source Comments [facility],non-owned Affiliates and Associated Physician Practices is amultiple site organization consisting of ambulatory clinics and hospital sitesin [place], [place], [place] and [place]. This disclosure is being madepursuant to the Care Everywhere program and may not contain all information available regarding this patient. Last updated 17.[facility] [employer] Social History Tobacco Use Types Packs/Day Years Used Date Smoking Tobacco: Never Assessed Sex and Gender Information Value Date Recorded Sex Assigned at Not on file Legal Sex Male 6:31 AM CDT Gender Identity Not on file Sexual Orientation Not on file Plan of Treatment Health Maintenance Due Date Last Done Comments COLOGUARD (AGES 45-75) - COL ON CA SCREENING 1955 COLON MONITORING 1953 COLONOSCOPY - COLON CA SCREENING 1953 CT COLONOGRAPHY - COLON CA SCREENING 1955 Colorectal Cancer Screening 1953 FIT - COLON CA SCREENING 1953 FLEX SIG - COLON CA SCREENING 1953 LIPID TESTING 1955 MEDICARE AWV 12 MONTHS 1953 HEPATITIS C SCREENING 12/04/1971 DTAP/TDAP/TD VACCINES (1 - Tdap) 1972 PNEUMOCOCCAL VACCINE 50+ (1 of 1 - PCV) 12/09/2003 ZOSTER VACCINE (1 of 2) 12/09/2003 COVID-19 VACCINE ( - 2023-2 5 season) 2023 DEPRESSION SCREENING 02/13/2024 INFLUENZA VACCINE (#1) 2024 Respiratory Syncytial Virus (RSV) Vaccine Pt: or over 60 yrs (1 - 1-dose 75+ series) 2028 HEPATITIS B VACCINE Aged Out No longe r eligible based on patient's age to complete this topic HIB VACCINE Aged Out No longer eligi ble based on patient's age to complete this topic HPV VACCINE Aged Out No longer eligi ble based on patient's age to complete this topic MENINGOCOCCAL (Group B) VACC INE SHARED DECISION-MAKING Aged Out No longer eligibl e based on patient's age to complete this topic MENINGOCOCCAL GROUPS A/C/Y/W VACCINE Aged Out No longer eligible b ased on patient's age to complete this topic Insurance MEDICARE
--- OUTSIDE RECORDS SUMMARY | 2024-08-23 13:52 | XMS_ITS ---
Author Organization [facility] Address [address] [place], [place] [id number] Care Team Providers Care Trader Fixed Income Name Role Phone SHANNAN BESSIE Unavailable [phone] Raj Gould Unavailable Unavailable Allergies No Known [...] 1 tablet Orally Once a day Active Social History Tobacco Use: Social History Observation Description Date Details (start date - stop date) Never Smoker NA - NA Tobacco Control (Standard) Question Answer Notes Tobacco use: Nonsmoker Vital Signs Height 71 in 08/06/2024 Weight 270 lbs 08/06/2024 BMI 37.65 kg/m2 08/06/2024 Height-cm 180.34 cm 08/06/2024 Weight-kg 122.47 kg 08/06/2024 Encounters Encounter Location Date Provider Diagnosis [facility] [address] [id number] 08/06/2024 BESSIE BURROUGHS 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.521 ; Other acute osteomyelitis of left foot M86.172 and Left foot pain M79.672 Assessments Encounter Date Diagnosis (ICD Code) Assessment Notes Treatment Notes Treatment Clinical Notes Section Notes 08/06/2024 Non-pressure chronic ulcer of other part of left foot limited to breakdown of skin (ICD-10 - L97.521) 08/06/2024 Other acute osteomyelitis of left foot (ICD-10 - M86.172) 08/06/2024 Left foot pain (ICD-10 - M79.672) 08/06/2024 Other The ulcer was debrided down to bleeding tissue. A dry sterile dressing was applied. The patient was given instruction on home dressing and told to use antibiotic ointment on the wound. The patient was instructed to minimize pressure on the wound and to call the office immediately if the wound should start to worsen. RTC 3 weeks Plan Of Treatment Treatment Notes Assessment Notes Other The ulcer was debrided down to bleeding tissue. A dry sterile dressing was applied. The patient was given instruction on home dressing and told to use antibiotic ointment on the wound. The patient was instructed to minimize pressure on the wound and to call the office immediately if the wound should start to worsen. RTC 3 weeks Next Appt Details Follow Up: 2 Weeks, Reason: with - wound check. Provider Name:BESSIE BARKER, 09/08/2024 07:40:00 AM, [address] [facility], [address], [phone], Progress Notes * SIL AREVALO ADOB: [birth year] (68 yo M)Acc No.[id number]:08/06/2024 Patient: SIL BLAS Provider: Joel Burroughs DPM :1955 A ge:68 Y S ex:Male Date:08/06/2024 [facility] Subjective: * Chief Complaints: * 1 . *Wound check. * HPI: H PI: Follow Up Visit P atient presents for follow-up visit for a wound on the medial side of his left 2nd digit. He states he has been using the toe separator, and he thinks it has been helping a lot. His toe is not as sore. MA: bairon. * Medical History: C ancer, High blood pressure. * Surgical History: p rostectomy , Hernia . * Family History: F ather: Cancer. B rother: Cancer. * Social History: T obacco Use: T obacco Control (Standard) T obacco use: N onsmoker * Medications: T aking Losartan Potassium 25 [...] medial left 2nd toe. The ulcer has almost resolved. Hyperkeratotic Skin Lesion T here is no [...] Temperature gradient: w ithin normal limits . ? Assessment: * Assessment: 1. 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 O ther acute osteomyelitis of left foot - M86.172 ?3. L eft foot pain - M79.672 Plan: * Treatment: * Follow Up: 2 Weeks (Reason: with - wound check.) * Billing Information: * Visit Code: 97022 Office Visit, Est Pt., Level 3. * Procedure Codes: * Electronic signature of BESSIE BURROUGHS DPM on 08/23/2024 at 01:51 PM CDT Sign off status: Pending * Provider: Joel Burroughs DPM Date: 08/06/2024 Generated for Cass montes/Tree/Tiara on: 0 08/23/2024 01:51 PM CDT History and Physical Notes * HPI (History of Present Illness) Category Sub-Category Detail Notes Category Not es HPI Follow Up Visit Patient presents for follow-up visit for a wound on the medial side of his left 2nd digit. He states he has been using the toe separator, and he thinks it has been helping a lot. His toe is not as sore. MA: sea Examination Category Sub-Category Detail Notes Category Not es Constitutional Constitutional The patient is a wake, alert, well developed, well groomed and well nourished. Dermatologic Nail pathology: Nails 1-5 bilate ral are normal in appearance and thickness. No discoloration. Ulcer: There is an ulcerati on present on medial left 2nd toe. The ulcer has almost resolved Hyperkeratotic Skin Lesion There is no e [...]
--- OUTSIDE RECORDS SUMMARY | 2024-08-23 13:52 | XMS_ITS | Referral Summary ---
Author Organization [place] [id number] [facility] Address [address] [place] [address] Care Team Providers Care Electronic Assembler Name Role Phone Raj Cotter DO Primary Care Provider + Johnie Trent MD Unavailable [phone] Jass Chang MD Unavailable Encounters Date Type Department Care Team Description 07/18/2024 8:12 AM CDT - 07/18/2024 11:59 PM CDT Hospital Encounter [facility] [address] [place] [address] Jass Chang MD Bulge of lumbar disc without myelopathy; Neural foraminal stenosis of lumbar spine; Radiculopathy, lumbar region Discharge Disposition: Discharge to home or self care 07/15/2024 12:33 PM CDT - 07/15/2024 11:59 PM CDT Hospital Encounter [facility] [address] [place] [address] Malignant neoplasm of prostate (HCC) Discharge Disposition: Discharge to home or self care 07/04/2024 1:21 PM CDT - 07/04/2024 11:59 PM CDT Hospital Encounter [facility] [address] [place] [address] Discharge Disposition: Discharge to home or self care 07/04/2024 1:14 PM CDT - 07/04/2024 11:59 PM CDT Hospital Encounter [facility] [place] [address] Jass Chang MD Bulge of lumbar disc without myelopathy (Primary Dx); Spinal stenosis, lumbar region, without neurogenic claudication; Neural foraminal stenosis of lumbar spine; Radiculopathy, lumbar region Discharge Disposition: Discharge to home or self care from Last 3 Months Allergies No known active allergies Medications aspirin [...] 12/14 Assessment & Plan (01/04/2022 7:31 AM WOUND CARE RN): Chart reviewed Severe obesity (BMI 35.0-39.9) with comorbidity 01/04/2022 Assessment & Plan (07/05/2022 7:29 AM CDT): Healthy diet Regular exercise Assessment & Plan (01/04/2022 7:33 AM WOUND CARE RN): Healthy diet Regular exercise Dizziness and giddiness 01/04/2022 Assessment & Plan (01/04/2022 7:33 AM WOUND CARE RN): Add antivert 25 mg prn Full code status 12/06/2020 Assessment & Plan (12/06/2020 7:38 AM CDT): Discussed with patient approximately 20minutes End of life issues/Advanced Directives/Healthcare Surrogate. Discussed DNR. Encouraged to discuss further with family and consult custom frame assembler or complete [place] approved form, which I would be glad to assist them with completion. All questions answered. polst form filled out and signed Right bundle branch block 09/25/2018 Coronary artery disease invo lving marshall coronary artery of marshall heart without angina pectoris 09/25/2018 Assessment & [...] 06/09/2016 Assessment & Plan (01/04/2022 7:42 AM WOUND CARE RN): tsh and free t4 Assessment & Plan (10/24/2018 7:37 AM CDT): Patient is well controlled. Continue current treatment. lab Pain in right knee 10/08/2015 Resolved Problems Problem Noted Date Diagnosed Date Resolved Date Pre-op exam 05/26/2021 01/04/2022 Assessment & Plan (05/26/2021 3:02 PM CDT): Cleared for cataract extraction Pre-op exam 01/12/2020 12/06/2020 Assessment & Plan (01/12/2020 11:23 AM WOUND CARE RN): Cleared medically Abdominal pain 04/24/2019 12/06/2020 Assessment [...] 7:37 AM CDT): Healthy diet Lose weight Immunizations Immunization Administration Dates Next Due Influenza, Quadrivalent, Hig h Dose, Preservative Free, Intrr 01/19/2023 Influenza, Quadrivalent, Rec ombinant, Egg Free, Preservative Free, Intramuscular 11/19/2019 Influenza, Unspecified 12/05/2021,2020(Deferred: Patient Refused) Pneumococcal Conjugate PCV 13 01/04/2022 Pneumococcal Polysaccharide PPV23 12/06/2020 Tdap 07/09/2013 Social History Tobacco Use Types Packs/Day Years [...] on file Legal Sex Male 1:20 AM WOUND CARE RN Gender Identity Not on file Sexual Orientation [...] 07/04/2024 1:30 PM CDT Plan of Treatment Not on file Procedures Procedure Name Priority Date/Time Associated Diagnosis [...] Lumbar/Sacral Selective Nerve Root INJ (TFE) Bilateral (66360) (07/18/2024 9:15 AM CDT) Narrative DONNA_MHB_MHE - 07/18/2024 1:33 PM CDT The images from this study are not interpreted by Radiology. Please refer to the physician's procedure / OR operative note. us Jass Chang MD [facility] PAIN MGMT PROCEDURES Final R esult RAD_CLARIO_MHB_MHE * PET/CT Prostate Cancer PSMA Skull to [...] Matt Padilla M.D. LB: [place] Report ID: [id number] Reading Location: [id number] Procedure Note Matt Padilla MD - 07/15/2024 [...] Matt Padilla M.D. LB: J[place]ET Report ID: [id number] Reading Location: [place] [address] Natan Alcantar MD IMG PET PROCEDURES Final Resu lt * MSK MR Outside Reference (07/04/2024 1:21 PM CDT) Narrative IKE_RHODA_JUANB_MHE - 07/04/2024 1:21 PM CDT This order has been auto-finalized and does not contain a result. us Provider Transcribed Order IMG MRI PROCEDURES Fi nal Result IKE_RHODA_MHB_MHE * PSA screen (08/04/2022 7:08 AM CDT) [...] ORDERABLES Fin al Result Performing Organization Address [facility] Co de Phone Number [facility] [address] [place] [address] * FIT occult blood, fecal (07/11/2022 12:00 AM CDT) [facility] Fecal globulin by immunochemistry [facility] Comment: FECAL GLOBIN BY IMMUNOCHEMISTRY Micro Number: [id number] Test Status: Final Specimen Source: Insure (tm) fobt test card Specimen Quality: Adequate Fecal Globin: Not Detected 07/11/2022 07/11/2022 9:1 1 PM CDT Rich Cotter MD LAB BODY FLUIDS AND STOOLS O RDERABLES Final Result Performing Organization Address [facility] Co de Phone Number [facility] [address] [place] [address] * Hepatitis C antibody (05/19/2021 7:11 AM CDT) [facility] Hep C Ab NON-REACTI VE NON-REACT KAYCEE [facility] SIGNAL TO CUT-OFF 0.01 <1.00 [facility] Comment: HCV antibody was non-reactive. There is no laboratory evidence of HCV infection. In most cases, no further action is required. However, if recent HCV exposure is suspected, a test for HCV RNA (test code 51122) is suggested. For additional information please refer to http://education.Pinger/faq/HSJ35b8 (This link is being provided for informational/ educational purposes only.) Blood specimen (specimen) 05/19/2021 7:11 AM CDT 05/19/2021 7:12 AM CDT Narrative [facility] - 05/20/2021 10:50 AM CDT FASTING:YES FASTING: YES us Raj Cotter DO LAB MICROBIOLOGY - GENER AL ORDERABLES Final Result [facility] [address] [place] [address] * Colonoscopy (08/27/2019) Anatomical Region Laterality Modality Other us Kayden Templeton MD ENDOSCOPY PROCEDURES Final Result from Last 3 Months or Most Recently Relevant to Health Maintenance Insurance MEDICARE [facility] MEDICARE SUPPLEMENT INSURANCE MEDICARE [facility] MEDICARE SUPPLEMENT INSURANCE MEDICARE [facility] MEDICARE SUPPLEMENT INSURANCE Advance Directives For more information, please contact: [phone] Documents on File Type Date Recorded Patient Assayer Helper Expl anation ADVANCE DIRECTIVE 12/06/2020 ADVANCE DIRECTIVE 06/05/2012 12:00 AM JUAN DAVID R [employer] Care Teams Electronic Assembler Relationship Specialty Start Date End Date Raj Cotter DO PCP - General 07/16/18 Johnie Trent MD [address] [facility] [address] [address] Fryer Operator Cardiology 09/20/18 Jass Chang MD [address] [facility] [address] Consulting Physician Pain Management 07/18/24
== END 2024-08-23 13:46 | disposition home or self-care (01) ==
PROVIDERS: PCP Family Medicine; Visit Provider Radiology Radiation Oncology
DX: C61 Malignant neoplasm of prostate (principal)
CPT/HCPCS: 72197; A9577